=== PATIENT | male | born 1970 | race Caucasian/White ===

== ENCOUNTER 2020-04-30 13:40 | Emergency (ER) | payer OTHER ==
[2020-04-30] MEDS ORDERED: Sodium Chloride 0.9% 10 ML Syringe FLUSH PRN (14:06)
[2020-04-30] MEDS ORDERED: Sodium Chloride 0.9% 1,000 ML IV SCH ×2 (14:15→18:30)
--- NOTE | 2020-04-30 14:43 | EDM.PDOCBH ---
<Yayo Damon A - Last Filed: 05/01/20 06:20> ED HPI GENERAL MEDICAL PROBLEM - General Chief Complaint: Drug or Alcohol Abuse Stated Complaint: [facility] Time Seen by Provider: 04/30/20 13:46 - Related Data Allergies Allergy/AdvReac Type Severity Reaction Status Date / Time No Known Allergies Allergy Verified 04/30/20 13:46 Home Meds: Home Meds . [No Known Home Meds] 04/30/20 [History] Departure - Departure Disposition: DC/Tfer to [facility] 02 Clinical Impression: Alcohol dependence, binge pattern, Hypomagnesemia Alcohol intoxication Qualifiers: Complication of substance-induced condition: uncomplicated Qualified Code(s): F10.920 - Alcohol use, unspecified with intoxication, uncomplicated Alcohol withdrawal Qualifiers: Complication of substance-induced condition: uncomplicated Qualified Code(s): F10.230 - Alcohol dependence with withdrawal, uncomplicated - Discharge Information *PRESCRIPTION DRUG MONITORING PROGRAM REVIEWED*: Not Applicable *COPY OF PRESCRIPTION DRUG MONITORING REPORT IN PATIENT [place]: Not Applicable Referrals: PCP,Not In Area [Primary Care Provider] - Forms: ED Department Discharge <Des Ledesma - Last Filed: 05/01/20 12:50> ED HPI GENERAL MEDICAL PROBLEM - General Source of Information: Reports: Patient, EMS History Limitations: Reports: Intoxication - History of Present Illness INITIAL COMMENTS - FREE TEXT/NARRATIVE: The patient presents by [facility] for alcohol intoxication. They found him in his bathroom on the floor. He had trouble getting up. He says he quit drinking yesterday and he thinks he is withdrawing. I feel he may still be intoxicated. I have a mask on and I cannot smell alcohol but he is slurring his words and is weak. He said he has no pain but he has ecchymosis to his arms and legs. He has no headache, fever, chills, cough, congestion, chest pain, shortness of breath, abdominal pain, nausea or vomiting. EMS said there were multiple hard liquor bottles in his room. After talking with him they thought he has been drinking daily for 7 days. Onset: Gradual Duration: Day(s): Severity: Moderate Improves with: Reports: None Worsens with: Reports: None Associated Symptoms: Reports: No Other Symptoms Past Medical History - Past Health History Medical/Surgical History: Denies Medical/Surgical History Psychiatric History: Reports: Addiction Social & Family History - Family History Family Medical History: No Pertinent Family History Cardiac: Reports: Pulmonary Hypertension - Tobacco Use Tobacco Use Status *Q: Current Every Day Tobacco User Years of Tobacco use: 40 Packs/Tins Daily: 1 - Alcohol Use Days Per Week of Alcohol Use: 7 Number of Drinks Per Day: 20 Total Drinks Per Week: 140 - Recreational Drug Use Recreational Drug Use: No ED ROS GENERAL - Review of Systems Review Of Systems: See Below Constitutional: Reports: No Symptoms HEENT: Reports: No Symptoms Respiratory: Reports: No Symptoms Cardiovascular: Reports: No Symptoms Endocrine: Reports: No Symptoms GI/Abdominal: Reports: No Symptoms : Reports: No Symptoms Musculoskeletal: Reports: No Symptoms ED EXAM, BEHAVIORAL HEALTH - Physical Exam Exam: See Below Exam Limited By: Intoxication General Appearance: Alert Ears: Normal External Exam Nose: Normal Inspection Throat/Mouth: Normal Inspection Head: Atraumatic, Normocephalic Neck: Normal Inspection Respiratory/Chest: No Respiratory Distress, Lungs Clear, Normal Breath Sounds Cardiovascular: Regular Rate, Rhythm, No Edema, No Murmur GI/Abdominal: Soft, Non-Tender, No Organomegaly, No Mass COURSE, BEHAVIORAL HEALTH COMP - Course Vital Signs: Last Vital Signs Temp 97.6 F 04/30/20 13:41 Pulse 98 04/30/20 13:41 Resp 12 04/30/20 13:41 BP 136/86 04/30/20 13:41 Pulse Ox 86 L 04/30/20 13:41 Orders, Labs, Meds: Active Orders 24 hr Category Date Time Status Cardiac Monitoring [RC] . DIRECTED Care 04/30/20 14:06 Active Peripheral IV Care [RC] . DIRECTED Care 04/30/20 14:06 Active Lactated Ringers [Ringers, Lactated] 1,000 ml Med 04/30/20 18:45 Active IV ASDIRECTED Lactated Ringers [Ringers, Lactated] 1,000 ml Med 05/01/20 09:30 Active IV ASDIRECTED Sodium Chloride 0.9% [Normal Saline] 1,000 ml Med 04/30/20 14:15 Active IV .BOLUS Sodium Chloride 0.9% [Saline Flush] Med 04/30/20 14:06 Active 10 ml FLUSH ASDIRECTED PRN Peripheral IV Insertion Adult [OM.PC] Stat Oth 04/30/20 14:06 Ordered Medication Orders Sodium Chloride (Normal Saline) 1,000 mls @ 1,000 mls/hr IV .BOLUS RUBEN Last Admin: 04/30/20 14:17 Dose: 1,000 mls/hr Documented by: MIKALA Lactated Ringer's (Ringers, Lactated) 1,000 mls @ 100 mls/hr IV ASDIRECTED RUBEN Last Admin: 04/30/20 19:06 Dose: 100 mls/hr Documented by: HERMMIC Lactated Ringer's (Ringers, Lactated) 1,000 mls @ 150 mls/hr IV ASDIRECTED RUBEN Last Admin: 05/01/20 09:23 Dose: 150 mls/hr Documented by: MIKALA Sodium Chloride (Saline Flush) 10 ml FLUSH ASDIRECTED PRN PRN Reason: Keep Vein Open Last Admin: 04/30/20 14:17 Dose: 10 ml Documented by: MIKALA Laboratory Tests 04/30/20 04/30/20 04/30/20 Range/Units 14:20 14:22 14:28 WBC 6.32 (4.23-9.07) K/mm3 RBC 4.23 L (4.63-6.08) M/mm3 Hgb 15.1 (13.7-17.5) gm/dl Hct 42.8 (40.1-51.0) % MCV 101.2 H (79.0-92.2) fl MCH 35.7 H (25.7-32.2) pg MCHC 35.3 (32.2-35.5) g/dl RDW Std Deviation 47.6 H (35.1-43.9) fL Plt Count 29 L (163-337) K/mm3 MPV 10.5 (9.4-12.3) fl Neut % (Auto) 75.0 H (34.0-67.9) % Lymph % (Auto) 16.0 L (21.8-53.1) % [place] % (Auto) 8.4 (5.3-12.2) % Eos % (Auto) 0 L (0.8-7.0) Baso % (Auto) 0.3 (0.1-1.2) % Neut # (Auto) 4.74 (1.78-5.38) K/mm3 Lymph # (Auto) 1.01 L (1.32-3.57) K/mm3 [place] # (Auto) 0.53 (0.30-0.82) K/mm3 Eos # (Auto) 0.00 L (0.04-0.54) K/mm3 Baso # (Auto) 0.02 (0.01-0.08) K/mm3 Manual Slide Review Abnormal smear Sodium 141 (136-145) mEq/L Potassium 3.9 (3.5-5.1) mEq/L Chloride 99 (98-107) mEq/L Carbon Dioxide 30 (21-32) mEq/L Anion Gap 15.9 H (5-15) BUN 9 (7-18) mg/dL Creatinine 0.8 (0.7-1.3) mg/dL Est Cr Clr Drug Dosing 111.53 mL/min Estimated GFR (MDRD) > 60 (>60) mL/min BUN/Creatinine Ratio 11.3 L (14-18) Glucose 94 (74-106) mg/dL POC Glucose (70-105) mg/dL Calcium 8.3 L (8.5-10.1) mg/dL Magnesium 1.6 L (1.8-2.4) mg/dl Total Bilirubin 0.7 (0.2-1.0) mg/dL AST 54 H (15-37) U/L ALT 43 (16-63) U/L Alkaline Phosphatase 82 (46-116) U/L Total Protein 7.8 (6.4-8.2) g/dl Albumin 3.5 (3.4-5.0) g/dl Globulin 4.3 gm/dL Albumin/Globulin Ratio 0.8 L (1-2) Urine Opiates Screen (IAPUWA=099) Ur Buprenorphine Scrn (CUTOFF=10) Ur Oxycodone Screen (WNU7BQ=016) Urine Methadone Screen (QRI4QZ=388) Ur Propoxyphene Screen (JFMZPA=739) Ur Barbiturates Screen (ONMYMG=477) Ur Tricyclics Screen (LNMHUT=601) Ur Phencyclidine Scrn (CUTOFF=25) Ur Amphetamine Screen (DMUFTR=533) U Methamphetamines Scrn (WKGIMD=847) U Benzodiazepines Scrn (VQXMVS=665) U Cocaine Metab Screen (VBDNJA=819) U Marijuana (THC) Screen (CUTOFF=50) Ethyl Alcohol 0.52 (0.00) gm% SARS-CoV-2 RNA (UTE) Negative (NEGATIVE) 04/30/20 05/01/20 05/01/20 Range/Units 15:20 04:52 07:05 WBC (4.23-9.07) K/mm3 RBC (4.63-6.08) M/mm3 Hgb (13.7-17.5) gm/dl Hct (40.1-51.0) % MCV (79.0-92.2) fl MCH (25.7-32.2) pg MCHC (32.2-35.5) g/dl RDW Std Deviation (35.1-43.9) fL Plt Count (163-337) K/mm3 MPV (9.4-12.3) fl Neut % (Auto) (34.0-67.9) % Lymph % (Auto) (21.8-53.1) % [place] % (Auto) (5.3-12.2) % Eos % (Auto) (0.8-7.0) Baso % (Auto) (0.1-1.2) % Neut # (Auto) (1.78-5.38) K/mm3 Lymph # (Auto) (1.32-3.57) K/mm3 [place] # (Auto) (0.30-0.82) K/mm3 Eos # (Auto) (0.04-0.54) K/mm3 Baso # (Auto) (0.01-0.08) K/mm3 Manual Slide Review Sodium (136-145) mEq/L Potassium (3.5-5.1) mEq/L Chloride (98-107) mEq/L Carbon Dioxide (21-32) mEq/L Anion Gap (5-15) BUN (7-18) mg/dL Creatinine (0.7-1.3) mg/dL Est Cr Clr Drug Dosing mL/min Estimated GFR (MDRD) (>60) mL/min BUN/Creatinine Ratio (14-18) Glucose (74-106) mg/dL POC Glucose 93 (70-105) mg/dL Calcium (8.5-10.1) mg/dL Magnesium (1.8-2.4) mg/dl Total Bilirubin (0.2-1.0) mg/dL AST (15-37) U/L ALT (16-63) U/L Alkaline Phosphatase (46-116) U/L Total Protein (6.4-8.2) g/dl Albumin (3.4-5.0) g/dl Globulin gm/dL Albumin/Globulin Ratio (1-2) Urine Opiates Screen Negative (ESIOVX=126) Ur Buprenorphine Scrn Negative (CUTOFF=10) Ur Oxycodone Screen Negative (GLH9TD=039) Urine Methadone Screen Negative (WTT5RT=777) Ur Propoxyphene Screen Negative (WAERWH=995) Ur Barbiturates Screen Negative (NLVOFL=331) Ur Tricyclics Screen Negative (MFFHPV=912) Ur Phencyclidine Scrn Negative (CUTOFF=25) Ur Amphetamine Screen Negative (GMVBCC=644) U Methamphetamines Scrn Negative (KRSPFI=277) U Benzodiazepines Scrn Negative (VWKQVK=857) U Cocaine Metab Screen Negative (LMETAC=815) U Marijuana (THC) Screen Negative (CUTOFF=50) Ethyl Alcohol 0.04 (0.00) gm% SARS-CoV-2 RNA (UTE) (NEGATIVE) Medications Generic Name Dose Route Start Last Admin Trade Name Freq PRN Reason Stop Dose Admin Sodium Chloride 1,000 mls @ 1,000 mls/hr 04/30/20 14:15 04/30/20 14:17 Normal Saline IV 1,000 mls/hr .BOLUS RUBEN Administration Lactated Ringer's 1,000 mls @ 100 mls/hr 04/30/20 18:45 04/30/20 19:06 Ringers, Lactated IV 100 mls/hr ASDIRECTED RUBEN Administration Lactated Ringer's 1,000 mls @ 150 mls/hr 05/01/20 09:30 05/01/20 09:23 Ringers, Lactated IV 150 mls/hr ASDIRECTED RUBEN Administration Sodium Chloride 10 ml 04/30/20 14:06 04/30/20 14:17 Saline Flush FLUSH 10 ml ASDIRECTED PRN Administration Keep Vein Open Discontinued Medications Generic Name Dose Route Start Last Admin Trade Name Freq PRN Reason Stop Dose Admin Magnesium Sulfate 2 gm in 50 mls @ 25 mls/hr 04/30/20 15:15 04/30/20 15:35 Magnesium Sulfate In Water Premix IV Not Given Q1H RUBEN Lactated Ringer's 1,000 mls @ 1,000 mls/hr 04/30/20 15:29 04/30/20 15:45 Ringers, Lactated IV 04/30/20 16:28 400 mls/hr .BOLUS ONE Administration Magnesium Sulfate 2 gm in 50 mls @ 25 mls/hr 04/30/20 15:35 04/30/20 15:46 Magnesium Sulfate In Water Premix IV 04/30/20 17:34 25 mls/hr ONETIME ONE Administration Sodium Chloride 1,000 mls @ 100 mls/hr 04/30/20 18:30 Normal Saline IV ASDIRECTED RUBEN Lactated Ringer's 1,000 mls @ 1,000 mls/hr 05/01/20 07:45 05/01/20 07:53 Ringers, Lactated IV 05/01/20 08:44 1,000 mls/hr .BOLUS ONE Administration Lorazepam 2 mg 05/01/20 07:44 05/01/20 07:48 Ativan IVPUSH 05/01/20 07:45 2 mg ONETIME ONE Administration Lorazepam 1 mg 05/01/20 09:16 05/01/20 09:23 Ativan PO 05/01/20 09:17 1 mg ONETIME ONE Administration Lorazepam 1 mg 05/01/20 12:15 05/01/20 12:45 Ativan IVPUSH 05/01/20 12:16 1 mg ONETIME ONE Administration Thiamine HCl 100 mg 04/30/20 15:15 04/30/20 15:46 Vitamin B-1 IVPUSH 04/30/20 15:16 100 mg ONETIME ONE Administration Re-Assessment/Re-Exam: I ordered an IV NS 1L bolus, labs, ETOH and drug screen. His CBC looks good. His anion gap is elevated at 15.9. His magnesium is low at 1.6. His AST is elevated at 54. His UDS is negative. His ETOH is 0.52. His COVID 19 is negative. I have ordered a liter of LR and magnesium 2 grams and thiamine. He will staying with us for a few hours. It is change of shift. Dr Damon to take over. My nurse was going to get the patient up to go home and he was shaking and unsteady on his feet. I ordered a repeat ETOH and it was 0.04. I ordered ativan 2mg IV. That did help. I gave him some breakfast and more LR. We tried a few hours later to get him up and he still was shaky. His CIWAA was 7. I gave him PO ativan. I was planning on discharging him home or to a crisis bed with [facility] but I do not think that is a possibility. I feel he needs to be admitted. We have no beds here. [facility] is full. I called Yeyo Small and I am waiting to take care of the hospitalist. I talked with Dr Felix and he accepted the patient. Departure - Departure Time of Disposition: 12:50 Sepsis Event Note (ED) - Evaluation Sepsis Screening Result: No Definite Risk - My Orders Last 24 Hours: My Active Orders 04/30/20 14:06 Cardiac Monitoring [RC] . DIRECTED Peripheral IV Care [RC] . DIRECTED Sodium Chloride 0.9% [Saline Flush] 10 ml FLUSH ASDIRECTED PRN Peripheral IV Insertion Adult [OM.PC] Stat 04/30/20 14:15 Sodium Chloride 0.9% [Normal Saline] 1,000 ml IV .BOLUS 04/30/20 18:45 Lactated Ringers [Ringers, Lactated] 1,000 ml IV ASDIRECTED 05/01/20 09:30 Lactated Ringers [Ringers, Lactated] 1,000 ml IV ASDIRECTED - Assessment/Plan Last 24 Hours: My Active Orders 04/30/20 14:06 Cardiac Monitoring [RC] . DIRECTED Peripheral IV Care [RC] . DIRECTED Sodium Chloride 0.9% [Saline Flush] 10 ml FLUSH ASDIRECTED PRN Peripheral IV Insertion Adult [OM.PC] Stat 04/30/20 14:15 Sodium Chloride 0.9% [Normal Saline] 1,000 ml IV .BOLUS 04/30/20 18:45 Lactated Ringers [Ringers, Lactated] 1,000 ml IV ASDIRECTED 05/01/20 09:30 Lactated Ringers [Ringers, Lactated] 1,000 ml IV ASDIRECTED
--- NOTE | 2020-04-30 15:05 | CR ---
Chest: Portable view of the chest was obtained. Comparison: No prior chest imaging is available. Heart size and mediastinum are normal. Lungs are clear with no acute parenchymal change. Bony structures are grossly intact. Impression: 1. Nothing acute is seen in portable chest x-ray. Diagnostic code #1
[2020-04-30] MEDS ORDERED: Magnesium Sulfate/Water 2 GM/50 ML BAG IV SCH (15:15)
[2020-04-30] MEDS ORDERED: Thiamine 200 MG/2 ML MDV IVPUSH ONE (15:15)
[2020-04-30] MEDS ORDERED: Lactated Ringers 1,000 ML IV ONE (15:29)
[2020-04-30] MEDS ORDERED: Magnesium Sulfate/Water 2 GM/50 ML BAG IV ONE (15:35)
[2020-04-30] MEDS ORDERED: Lactated Ringers 1,000 ML IV SCH (18:45)
[2020-05-01] MEDS ORDERED: LORazepam 2 MG/ML SDV IVPUSH ONE ×2 (07:44→12:15)
[2020-05-01] MEDS ORDERED: Lactated Ringers 1,000 ML IV ONE (07:45)
[2020-05-01] MEDS ORDERED: LORazepam 1 MG Tab PO ONE (09:16)
[2020-05-01] MEDS ORDERED: Lactated Ringers 1,000 ML IV SCH (09:30)
== END 2020-05-01 13:08 ==
LOC: JD.ED 13:40
DX: F10.220 Alcohol dependence with intoxication, uncomplicated (principal); F10.230 Alcohol dependence with withdrawal, uncomplicated; E83.42 Hypomagnesemia; F50.81 Binge eating disorder; F17.210 Nicotine dependence, cigarettes, uncomplicated; Z20.828 Contact with and (suspected) exposure to other viral communicable diseases; Y90.0 Blood alcohol level of less than 20 mg/100 ml
CPT/HCPCS: 36415; 71045; 80053; 80306; 80307; 82962; 83735; 85025; 87635; 96365; 96366; 96375; 96376; 99285; A9270; J2060; J3411; J3475; J7030; J7120; 99284; U0002

== ENCOUNTER 2020-11-30 12:50 | Inpatient (IN) | payer OTHER ==
[2020-11-30] MEDS ORDERED: Metoclopramide 10 MG/2 ML SDV IVPUSH ONE (13:31)
[2020-11-30] MEDS ORDERED: Thiamine 100 MG Tab PO ONE (13:31)
[2020-11-30] MEDS ORDERED: Folic Acid 1 MG Tab PO ONE (13:31)
[2020-11-30] MEDS ORDERED: Sodium Chloride 0.9% 10 ML Syringe FLUSH PRN (13:31)
[2020-11-30] MEDS ORDERED: Sodium Chloride 0.9% 1,000 ML IV ONE ×3 (13:31→17:38)
--- NOTE | 2020-11-30 13:43 | EDM.PDOC ---
ED HPI GENERAL MEDICAL PROBLEM - General Chief Complaint: Drug or Alcohol Abuse Stated Complaint: MENTAL EVAL Time Seen by Provider: 11/30/20 13:31 Source of Information: Reports: Patient, RN Notes Reviewed History Limitations: Reports: No Limitations - History of Present Illness INITIAL COMMENTS - FREE TEXT/NARRATIVE: Patient is a 50-year-old male who presents to the ER for the evaluation of his alcohol intoxication. Patient is a daily drinker, states that he normally drinks about 18 pack of beers on a daily basis, has been doing this for multiple years. Does state that he has a history of withdrawal seizures in the past. Patient himself states that his last drink was 2 hours ago, and he did present to the ER with a few bottles of liquor, which were confiscated. The patient himself denies pain anywhere, he is not had any falls. He was somewhat unstable on his feet, due to the amount of intoxication he is experiencing. He was able to answer questions appropriately with me however he is somewhat tearful, states that he would like to quit drinking, as he thinks it is ruining his life. Patient denies any other sick-like symptoms, fever/chills, cough/shortness of breath, nausea/vomiting/diarrhea. Patient is a , but states he takes no regular medications. Patient denies any other illicit drug use, and states that he is an every day smoker and he smokes about half a pack per day, for the last 30 years or so. - Related Data Allergies Allergy/AdvReac Type Severity Reaction Status Date / Time No Known Allergies Allergy Verified 11/30/20 13:02 Home Meds: Home Meds . [No Known Home Meds] 04/30/20 [History] Past Medical History Cardiovascular History: Reports: Hypertension Psychiatric History: Reports: Addiction (alcohol/nicotine) Endocrine/Metabolic History: Reports: Obesity/BMI 30+ Social & Family History - Family History Cardiac: Reports: Pulmonary Hypertension - Tobacco Use Tobacco Use Status *Q: Current Every Day Tobacco User Tobacco Use Within Last Twelve Months: Cigarettes Years of Tobacco use: 25 Packs/Tins Daily: 1 - Caffeine Use Caffeine Use: Reports: Coffee - Alcohol Use Alcohol Use History: Yes Days Per Week of Alcohol Use: 7 Number of Drinks Per Day Comment: 18 beers plus liquor Alcohol Use in Last Twelve Months: Yes Alcohol Use Frequency: Daily - Recreational Drug Use Recreational Drug Use: No ED ROS GENERAL - Review of Systems Review Of Systems: Comprehensive ROS is negative, except as noted in HPI. ED EXAM, GENERAL - Physical Exam Exam: See Below Exam Limited By: No Limitations General Appearance: Alert, WD/WN, No Apparent Distress (Patient does exhibit generalized intoxication symptoms but does answer questions appropriately when asked.) Eye Exam: Bilateral Eye: EOMI, Normal Inspection, PERRL Respiratory/Chest: No Respiratory Distress, Lungs Clear, Normal Breath Sounds, No Accessory Muscle Use, Chest Non-Tender Cardiovascular: Normal Peripheral Pulses, Regular Rate, Rhythm, No Edema Peripheral Pulses: 2+: Radial (L), Radial (R) GI/Abdominal: Normal Bowel Sounds, Soft, Non-Tender Extremities: Normal Inspection, Normal Capillary Refill Neurological: Alert, Oriented, Normal Cognition, No Motor/Sensory Deficits Psychiatric: Depressed Mood, Tearful (pt does break down multiple times while being interviewed) Skin Exam: Warm, Dry, Intact, Normal Color, No Rash Course - Vital Signs Last Recorded V/S: Last Vital Signs Temp 97.4 F 11/30/20 12:59 Pulse 103 H 11/30/20 12:59 Resp 16 11/30/20 12:59 BP 165/107 H 11/30/20 12:59 Pulse Ox 93 L 11/30/20 12:59 - Orders/Labs/Meds Orders: Active Orders 24 hr Category Date Time Status Peripheral IV Care [RC] . DIRECTED Care 11/30/20 13:31 Active COVID-19/FLU A+B [MOLEC] Stat Lab 11/30/20 19:46 Ordered Sodium Chloride 0.9% [Saline Flush] Med 11/30/20 13:31 Active 10 ml FLUSH ASDIRECTED PRN Peripheral IV Insertion Adult [OM.PC] Stat Oth 11/30/20 13:31 Ordered Medication Orders Sodium Chloride (Sodium Chloride 0.9% 10 Ml Syringe) 10 ml FLUSH ASDIRECTED PRN PRN Reason: Keep Vein Open Last Admin: 11/30/20 13:46 Dose: 10 ml Documented by: KATEY Labs: Laboratory Tests 11/30/20 11/30/20 11/30/20 Range/Units 13:00 13:00 13:00 WBC 3.95 L (4.23-9.07) K/mm3 RBC 4.03 L (4.63-6.08) M/mm3 Hgb 14.8 (13.7-17.5) gm/dl Hct 43.5 (40.1-51.0) % MCV 107.9 H D (79.0-92.2) fl MCH 36.7 H (25.7-32.2) pg MCHC 34.0 (32.2-35.5) g/dl RDW Std Deviation 51.1 H (35.1-43.9) fL Plt Count 97 L (163-337) K/mm3 MPV 10.2 (9.4-12.3) fl Neut % (Auto) 34.0 (34.0-67.9) % Lymph % (Auto) 47.3 (21.8-53.1) % [place] % (Auto) 14.9 H (5.3-12.2) % Eos % (Auto) 2.5 (0.8-7.0) Baso % (Auto) 1.0 (0.1-1.2) % Neut # (Auto) 1.34 L (1.78-5.38) K/mm3 Lymph # (Auto) 1.87 (1.32-3.57) K/mm3 [place] # (Auto) 0.59 (0.30-0.82) K/mm3 Eos # (Auto) 0.10 (0.04-0.54) K/mm3 Baso # (Auto) 0.04 (0.01-0.08) K/mm3 Manual Slide Review Normal smear PT 10.8 (9.7-12.0) SECONDS INR 1.01 Sodium 146 H (136-145) mEq/L Potassium 4.1 (3.5-5.1) mEq/L Chloride 107 (98-107) mEq/L Carbon Dioxide 24 (21-32) mEq/L Anion Gap 19.1 H (5-15) BUN 6 L (7-18) mg/dL Creatinine 0.6 L (0.7-1.3) mg/dL Est Cr Clr Drug Dosing 153.39 mL/min Estimated GFR (MDRD) > 60 (>60) mL/min BUN/Creatinine Ratio 10.0 L (14-18) Glucose 107 H (70-99) mg/dL Calcium 8.3 L (8.5-10.1) mg/dL Magnesium 1.9 (1.8-2.4) mg/dL Total Bilirubin 0.3 (0.2-1.0) mg/dL AST 100 H (15-37) U/L ALT 82 H (16-63) U/L Alkaline Phosphatase 154 H (46-116) U/L Total Protein 8.5 H (6.4-8.2) g/dl Albumin 4.2 (3.4-5.0) g/dl Globulin 4.3 gm/dL Albumin/Globulin Ratio 1.0 (1-2) Urine Opiates Screen (YUSZHU=698) Ur Buprenorphine Scrn (CUTOFF=10) Ur Oxycodone Screen (DKX3PS=391) Urine Methadone Screen (WNT5BB=850) Ur Propoxyphene Screen (FBPTIC=979) Ur Barbiturates Screen (ZRPMPU=652) Ur Tricyclics Screen (FETJRP=524) Ur Phencyclidine Scrn (CUTOFF=25) Ur Amphetamine Screen (UMFMQN=690) U Methamphetamines Scrn (MSWNBL=642) U Benzodiazepines Scrn (QACPUQ=576) U Cocaine Metab Screen (SYWBDV=119) U Marijuana (THC) Screen (CUTOFF=50) Ethyl Alcohol 0.49 (0.00) gm% 11/30/20 Range/Units 13:45 WBC (4.23-9.07) K/mm3 RBC (4.63-6.08) M/mm3 Hgb (13.7-17.5) gm/dl Hct (40.1-51.0) % MCV (79.0-92.2) fl MCH (25.7-32.2) pg MCHC (32.2-35.5) g/dl RDW Std Deviation (35.1-43.9) fL Plt Count (163-337) K/mm3 MPV (9.4-12.3) fl Neut % (Auto) (34.0-67.9) % Lymph % (Auto) (21.8-53.1) % [place] % (Auto) (5.3-12.2) % Eos % (Auto) (0.8-7.0) Baso % (Auto) (0.1-1.2) % Neut # (Auto) (1.78-5.38) K/mm3 Lymph # (Auto) (1.32-3.57) K/mm3 [place] # (Auto) (0.30-0.82) K/mm3 Eos # (Auto) (0.04-0.54) K/mm3 Baso # (Auto) (0.01-0.08) K/mm3 Manual Slide Review PT (9.7-12.0) SECONDS INR Sodium (136-145) mEq/L Potassium (3.5-5.1) mEq/L Chloride (98-107) mEq/L Carbon Dioxide (21-32) mEq/L Anion Gap (5-15) BUN (7-18) mg/dL Creatinine (0.7-1.3) mg/dL Est Cr Clr Drug Dosing mL/min Estimated GFR (MDRD) (>60) mL/min BUN/Creatinine Ratio (14-18) Glucose (70-99) mg/dL Calcium (8.5-10.1) mg/dL Magnesium (1.8-2.4) mg/dL Total Bilirubin (0.2-1.0) mg/dL AST (15-37) U/L ALT (16-63) U/L Alkaline Phosphatase (46-116) U/L Total Protein (6.4-8.2) g/dl Albumin (3.4-5.0) g/dl Globulin gm/dL Albumin/Globulin Ratio (1-2) Urine Opiates Screen Negative (GGWDKP=760) Ur Buprenorphine Scrn Negative (CUTOFF=10) Ur Oxycodone Screen Negative (SVD0MI=656) Urine Methadone Screen Negative (BVE6XK=073) Ur Propoxyphene Screen Negative (CVROWR=576) Ur Barbiturates Screen Negative (XHQNFC=412) Ur Tricyclics Screen Negative (HWGKDY=473) Ur Phencyclidine Scrn Negative (CUTOFF=25) Ur Amphetamine Screen Negative (YBTQQO=089) U Methamphetamines Scrn Negative (BNTRPR=323) U Benzodiazepines Scrn Negative (WHNXWL=875) U Cocaine Metab Screen Negative (ANYELI=409) U Marijuana (THC) Screen Negative (CUTOFF=50) Ethyl Alcohol (0.00) gm% Meds: Medications Generic Name Dose Route Start Last Admin Trade Name Freq PRN Reason Stop Dose Admin Sodium Chloride 10 ml 11/30/20 13:31 11/30/20 13:46 Sodium Chloride 0.9% 10 Ml Syringe FLUSH 10 ml ASDIRECTED PRN Administration Keep Vein Open Discontinued Medications Generic Name Dose Route Start Last Admin Trade Name Pretty PRN Reason Stop Dose Admin Folic Acid 1 mg 11/30/20 13:31 11/30/20 13:46 Folic Acid 1 Mg Tab PO 11/30/20 13:32 1 mg ONETIME ONE Administration Sodium Chloride 1,000 mls @ 999 mls/hr 11/30/20 13:31 11/30/20 13:45 Normal Saline IV 11/30/20 14:31 999 mls/hr ONETIME ONE Administration Sodium Chloride 1,000 mls @ 500 mls/hr 11/30/20 14:31 11/30/20 15:11 Normal Saline IV 11/30/20 16:30 500 mls/hr ONETIME ONE Administration Sodium Chloride 1,000 mls @ 500 mls/hr 11/30/20 17:38 11/30/20 17:45 Normal Saline IV 11/30/20 19:37 500 mls/hr ONETIME ONE Administration Lorazepam 2 mg 11/30/20 14:38 11/30/20 15:20 Lorazepam 2 Mg/Ml Sdv IVPUSH 11/30/20 14:39 2 mg ONETIME ONE Administration Metoclopramide HCl 10 mg 11/30/20 13:31 11/30/20 13:46 Metoclopramide 10 Mg/2 Ml Sdv IVPUSH 11/30/20 13:32 10 mg ONETIME ONE Administration Thiamine HCl 100 mg 11/30/20 13:31 11/30/20 13:46 Thiamine 100 Mg Tab PO 11/30/20 13:32 100 mg ONETIME ONE Administration - Re-Assessments/Exams Free Text/Narrative Re-Assessment/Exam: 11/30/20 13:43 Patient presents to the ER for the evaluation of his alcohol intoxication, we will go ahead and get IV placed, get him some fluids, medications to help him sleep this off, and check some basic labs. Patient did verbalize that he would like to quit drinking however I will reassess the situation when he is more sober. 11/30/20 14:30 Patient's labs have resulted, CBC is impressive for macrocytic anemia, with susp ect bone marrow suppression due to the low white count as well. Metabolic panel demonstrates an anion gap elevated at 19.1, and transaminitis, due to acute alcohol intake, a WENDI of 0.49, and a negative urine drug screen for the most part. Again we will monitor the patient for a good amount of time, and try to figure out a good discharge plan for him. 11/30/20 14:38 Was informed by nursing staff that the patient did just pull out his IV, he is not being combative by any means but did pull out his IV. So we can get him to sleep, and let him sober up by will give him some Ativan to help calm his nerves while being in the ER. 11/30/20 19:58 Patient was up at bedside and is still expressing the want to stop drinking because he states that it is "killing him" I have ordered a COVID screen and have talked with Dr. Gunderson, hospitalist manager aviation who does ultimately accept for admission. Departure - Departure Time of Disposition: 20:00 Disposition: Admitted As Inpatient 64 Condition: Fair Clinical Impression: Alcohol abuse Alcohol intoxication Qualifiers: Complication of substance-induced condition: uncomplicated Qualified Code(s): F10.920 - Alcohol use, unspecified with intoxication, uncomplicated - Discharge Information *PRESCRIPTION DRUG MONITORING PROGRAM REVIEWED*: No *COPY OF PRESCRIPTION DRUG MONITORING REPORT IN PATIENT TEAGAN: No Referrals: Katelin Correa MD [Primary Care Provider] - Forms: ED Department Discharge Sepsis Event Note (ED) - Evaluation Sepsis Screening Result: No Definite Risk - Focused Exam Vital Signs: Vital Signs Temp Pulse Resp BP Pulse Ox 11/30/20 12:59 97.4 F 103 H 16 165/107 H 93 L - My Orders Last 24 Hours: My Active Orders 11/30/20 13:31 Peripheral IV Care [RC] . DIRECTED Sodium Chloride 0.9% [Saline Flush] 10 ml FLUSH ASDIRECTED PRN Peripheral IV Insertion Adult [OM.PC] Stat 11/30/20 19:46 COVID-19/FLU A+B [MOLEC] Stat - Assessment/Plan Last 24 Hours: My Active Orders 11/30/20 13:31 Peripheral IV Care [RC] . DIRECTED Sodium Chloride 0.9% [Saline Flush] 10 ml FLUSH ASDIRECTED PRN Peripheral IV Insertion Adult [OM.PC] Stat 11/30/20 19:46 COVID-19/FLU A+B [MOLEC] Stat
[2020-11-30] MEDS ORDERED: LORazepam 2 MG/ML SDV IVPUSH ONE (14:38)
[2020-11-30] MEDS ORDERED: Ondansetron 4 MG/2 ML SDV IVPUSH PRN (20:32)
[2020-11-30 20:34] LABS: CORONAVIRUS COVID-19 NAA NEGATIVE (NEGATIVE)
--- NOTE | 2020-11-30 20:40 | PCM.HP.2 ---
H&P History of Present Illness - General Date of Service: 11/30/20 Admit Problem/Dx: Admission Diagnosis/Problem Admission Diagnosis/Problem Alcoholism Source of Information: Patient - History of Present Illness Initial Comments - Free Text/Narative: Patient is a 50-year-old male with a past medical history for alcoholism and supposedly alcohol withdrawal related seizures, who was never been hospitalized who presents to the [facility] emergency department earlier today by taxi exquisitely intoxicated. Patient presented to the ER earlier today with the intention to sober up. He apparently wants to stop drinking. Patient states that he has been drinking at least an 18 rack of light beer per day for many years. Occasionally he will have 16 ounce Pounders intermittently as well. Denies any hard liquor currently. No other drug use. He smokes a pack of cigarettes per day. He presented to the emergency department with a blood alcohol level over 400. He was allowed to sober up in the emergency department. A conversation was had between ER personnel and he after he sobered up and was answering questions. Patient wished that he could be admitted in order to stop drinking. For that reason the patient was referred to the internal medicine service for treatment of impending withdrawal. Patient states that is never been hospitalized for alcohol withdrawal before. He believes that he has had a seizure. This happened in [place]. He has obviously never been intubated. At current time, the patient denies any headache, shortness of breath, pleurisy, chest pain, nausea/vomiting, abdominal discomfort or difficulties with voiding. - Related Data Allergies/Adverse Reactions: Allergies Allergy/AdvReac Type Severity Reaction Status Date / Time No Known Allergies Allergy Verified 11/30/20 13:02 Home Medications: Home Meds . [No Known Home Meds] 04/30/20 [History] Past Medical History Cardiovascular History: Reports: Hypertension Psychiatric History: Reports: Addiction (alcohol/nicotine) Endocrine/Metabolic History: Reports: Obesity/BMI 30+ Social & Family History - Family History Family Medical History: No Pertinent Family History Cardiac: Reports: Pulmonary Hypertension - Tobacco Use Tobacco Use Status *Q: Current Every Day Tobacco User Years of Tobacco use: 25 Packs/Tins Daily: 1 - Caffeine Use Caffeine Use: Reports: Coffee - Alcohol Use Days Per Week of Alcohol Use: 7 - Recreational Drug Use Recreational Drug Use: No H&P Review of Systems - Review of Systems: Review Of Systems: Comprehensive ROS is negative, except as noted in HPI. Exam - Exam Exam: See Below - Vital Signs Vital Signs: Last Vital Signs Temp 97.4 F 11/30/20 12:59 Pulse 103 H 11/30/20 12:59 Resp 16 11/30/20 12:59 BP 165/107 H 11/30/20 12:59 Pulse Ox 93 L 11/30/20 12:59 Weight: 220 lb - Exam Physical Exam Comments:: General: Awake and alert, in no apparent distress. Nontoxic-appearing. HEENT: Normocephalic, atraumatic. Extra ocular muscles intact. Sclerae are injected. Pupils equal and reactive to light. Nares are patent. Oropharynx clear without erythema or exudate. Tongue is midline. Neck: Supple without lymphadenopathy. No goiter. Trachea midline. Heart: Regular rate and rhythm. S1 and S2 heard without murmur or extrasystoles. Lungs: Clear to auscultation bilaterally. No wheezing, rales, rhonchi. Abdomen: Soft, nontender, nondistended. Positive bowel sounds. No CVA tenderness. No suprapubic tenderness. Extremities: Warm and perfused. No clubbing, cyanosis, or edema. Integument: No obvious rash or jaundice. No lymphadenopathy. Neurologic: Cranial nerves II through XII grossly intact. No obvious gross motor or sensory deficits. Psychiatric: Normal mood and affect. - Patient Data Lab Results Last 24 hrs: Laboratory Results - last 24 hr 11/30/20 11/30/20 11/30/20 Range/Units 13:00 13:00 13:00 WBC 3.95 L (4.23-9.07) K/mm3 RBC 4.03 L (4.63-6.08) M/mm3 Hgb 14.8 (13.7-17.5) gm/dl Hct 43.5 (40.1-51.0) % MCV 107.9 H D (79.0-92.2) fl MCH 36.7 H (25.7-32.2) pg MCHC 34.0 (32.2-35.5) g/dl RDW Std Deviation 51.1 H (35.1-43.9) fL Plt Count 97 L (163-337) K/mm3 MPV 10.2 (9.4-12.3) fl Neut % (Auto) 34.0 (34.0-67.9) % Lymph % (Auto) 47.3 (21.8-53.1) % [place] % (Auto) 14.9 H (5.3-12.2) % Eos % (Auto) 2.5 (0.8-7.0) Baso % (Auto) 1.0 (0.1-1.2) % Neut # (Auto) 1.34 L (1.78-5.38) K/mm3 Lymph # (Auto) 1.87 (1.32-3.57) K/mm3 [place] # (Auto) 0.59 (0.30-0.82) K/mm3 Eos # (Auto) 0.10 (0.04-0.54) K/mm3 Baso # (Auto) 0.04 (0.01-0.08) K/mm3 Manual Slide Review Normal smear PT 10.8 (9.7-12.0) SECONDS INR 1.01 Sodium 146 H (136-145) mEq/L Potassium 4.1 (3.5-5.1) mEq/L Chloride 107 (98-107) mEq/L Carbon Dioxide 24 (21-32) mEq/L Anion Gap 19.1 H (5-15) BUN 6 L (7-18) mg/dL Creatinine 0.6 L (0.7-1.3) mg/dL Est Cr Clr Drug Dosing 153.39 mL/min Estimated GFR (MDRD) > 60 (>60) mL/min BUN/Creatinine Ratio 10.0 L (14-18) Glucose 107 H (70-99) mg/dL Calcium 8.3 L (8.5-10.1) mg/dL Magnesium 1.9 (1.8-2.4) mg/dL Total Bilirubin 0.3 (0.2-1.0) mg/dL AST 100 H (15-37) U/L ALT 82 H (16-63) U/L Alkaline Phosphatase 154 H (46-116) U/L Total Protein 8.5 H (6.4-8.2) g/dl Albumin 4.2 (3.4-5.0) g/dl Globulin 4.3 gm/dL Albumin/Globulin Ratio 1.0 (1-2) Urine Opiates Screen (HAXOML=095) Ur Buprenorphine Scrn (CUTOFF=10) Ur Oxycodone Screen (CNO6GY=672) Urine Methadone Screen (DSC7BO=211) Ur Propoxyphene Screen (YGGKMB=047) Ur Barbiturates Screen (ORNIED=996) Ur Tricyclics Screen (PNZVKX=981) Ur Phencyclidine Scrn (CUTOFF=25) Ur Amphetamine Screen (TOGVTH=133) U Methamphetamines Scrn (QSIHAI=676) U Benzodiazepines Scrn (DWWFEF=832) U Cocaine Metab Screen (AANTZP=727) U Marijuana (THC) Screen (CUTOFF=50) Ethyl Alcohol 0.49 (0.00) gm% Influenza Type A RNA (NEGATIVE) Influenza Type B RNA (NEGATIVE) SARS-CoV-2 RNA (UTE) (NEGATIVE) 11/30/20 11/30/20 Range/Units 13:45 19:47 WBC (4.23-9.07) K/mm3 RBC (4.63-6.08) M/mm3 Hgb (13.7-17.5) gm/dl Hct (40.1-51.0) % MCV (79.0-92.2) fl MCH (25.7-32.2) pg MCHC (32.2-35.5) g/dl RDW Std Deviation (35.1-43.9) fL Plt Count (163-337) K/mm3 MPV (9.4-12.3) fl Neut % (Auto) (34.0-67.9) % Lymph % (Auto) (21.8-53.1) % [place] % (Auto) (5.3-12.2) % Eos % (Auto) (0.8-7.0) Baso % (Auto) (0.1-1.2) % Neut # (Auto) (1.78-5.38) K/mm3 Lymph # (Auto) (1.32-3.57) K/mm3 [place] # (Auto) (0.30-0.82) K/mm3 Eos # (Auto) (0.04-0.54) K/mm3 Baso # (Auto) (0.01-0.08) K/mm3 Manual Slide Review PT (9.7-12.0) SECONDS INR Sodium (136-145) mEq/L Potassium (3.5-5.1) mEq/L Chloride (98-107) mEq/L Carbon Dioxide (21-32) mEq/L Anion Gap (5-15) BUN (7-18) mg/dL Creatinine (0.7-1.3) mg/dL Est Cr Clr Drug Dosing mL/min Estimated GFR (MDRD) (>60) mL/min BUN/Creatinine Ratio (14-18) Glucose (70-99) mg/dL Calcium (8.5-10.1) mg/dL Magnesium (1.8-2.4) mg/dL Total Bilirubin (0.2-1.0) mg/dL AST (15-37) U/L ALT (16-63) U/L Alkaline Phosphatase (46-116) U/L Total Protein (6.4-8.2) g/dl Albumin (3.4-5.0) g/dl Globulin gm/dL Albumin/Globulin Ratio (1-2) Urine Opiates Screen Negative (ZYXYAS=449) Ur Buprenorphine Scrn Negative (CUTOFF=10) Ur Oxycodone Screen Negative (SRG8NU=566) Urine Methadone Screen Negative (QGW9NU=854) Ur Propoxyphene Screen Negative (WNQOPD=938) Ur Barbiturates Screen Negative (KLBSTC=967) Ur Tricyclics Screen Negative (HMYMXQ=046) Ur Phencyclidine Scrn Negative (CUTOFF=25) Ur Amphetamine Screen Negative (OLANOX=419) U Methamphetamines Scrn Negative (PHUXEF=289) U Benzodiazepines Scrn Negative (MXOGFS=888) U Cocaine Metab Screen Negative (YEZWMX=683) U Marijuana (THC) Screen Negative (CUTOFF=50) Ethyl Alcohol (0.00) gm% Influenza Type A RNA Negative (NEGATIVE) Influenza Type B RNA Negative (NEGATIVE) SARS-CoV-2 RNA (UTE) Negative (NEGATIVE) Result Diagrams: 11/30/20 13:00 11/30/20 13:00 Sepsis Event Note - Evaluation Sepsis Screening Result: No Definite Risk - Focused Exam Vital Signs: Vital Signs Temp Pulse Resp BP Pulse Ox 11/30/20 12:59 97.4 F 103 H 16 165/107 H 93 L Problem List Initiated/Reviewed/Updated: Yes Orders Last 24hrs: Active Orders 24 hr Category Date Time Status Patient Status [ADT] Routine ADT 11/30/20 20:21 Active CIWAA Assessment [RC] Q15M Care 11/30/20 20:32 Active CIWAA Assessment [RC] Q1H Care 11/30/20 20:32 Active CIWAA Assessment [RC] Q30M Care 11/30/20 20:32 Active CIWAA Assessment [RC] Q4H Care 11/30/20 20:32 Active Cardiac Monitoring [RC] . DIRECTED Care 11/30/20 20:32 Active Notify Provider [RC] PRN Care 11/30/20 20:32 Active Oxygen Therapy [RC] PRN Care 11/30/20 20:21 Active Peripheral IV Care [RC] . DIRECTED Care 11/30/20 13:31 Active Pulse Oximetry [RC] PRN Care 11/30/20 20:22 Active Up With Assistance [RC] ASDIRECTED Care 11/30/20 20:21 Active VTE/DVT Education [RC] PER UNIT ROUTINE Care 11/30/20 20:21 Active Vital Signs [RC] Q4H Care 11/30/20 20:21 Active Consult to Case Management/Lamp Developer [CONS] Cons 11/30/20 20:32 Active Routine Regular Diet [DIET] Diet 11/30/20 Breakfast Active BASIC METABOLIC PANEL,BMP [CHEM] DAILY Lab 12/01/20 06:00 Ordered BASIC METABOLIC PANEL,BMP [CHEM] DAILY Lab 12/02/20 06:00 Ordered BASIC METABOLIC PANEL,BMP [CHEM] DAILY Lab 12/03/20 06:00 Ordered BASIC METABOLIC PANEL,BMP [CHEM] DAILY Lab 12/04/20 06:00 Ordered LORazepam [Ativan] Med 11/30/20 20:45 Ordered See Protocol IV ASDIRECTED LORazepam [Ativan] Med 11/30/20 20:45 Ordered See Protocol PO ASDIRECTED Metoprolol Tartrate [Lopressor] Med 11/30/20 20:32 Ordered 25 mg PO Q6H PRN Ondansetron [Zofran] Med 11/30/20 20:32 Ordered 4 mg IVPUSH Q4H PRN Pantoprazole [ProTONIX IV] Med 11/30/20 20:45 Ordered 40 mg IV DAILY Sodium Chloride 0.9% [Saline Flush] Med 11/30/20 13:31 Active 10 ml FLUSH ASDIRECTED PRN Peripheral IV Insertion Adult [OM.PC] Stat Oth 11/30/20 13:31 Ordered Resuscitation Status Routine Resus Stat 11/30/20 20:21 Ordered Medication Orders Lorazepam (Lorazepam 2 Mg/Ml Sdv) 0 mg IV ASDIRECTED RUBEN; Protocol Lorazepam (Lorazepam 1 Mg Tab) 0 mg PO ASDIRECTED RUBEN; Protocol Metoprolol Tartrate (Metoprolol Tartrate 25 Mg Tab) 25 mg PO Q6H PRN PRN Reason: See Label Comment Ondansetron HCl (Ondansetron 4 Mg/2 Ml Sdv) 4 mg IVPUSH Q4H PRN PRN Reason: Nausea Pantoprazole Sodium (Pantoprazole 40 Mg Vial) 40 mg IV DAILY RUBEN Sodium Chloride (Sodium Chloride 0.9% 10 Ml Syringe) 10 ml FLUSH ASDIRECTED PRN PRN Reason: Keep Vein Open Last Admin: 11/30/20 13:46 Dose: 10 ml Documented by: KATEY Assessment/Plan Comment:: Patient is a 50-year-old male with a past medical history significant for many years of alcoholism with supposedly prior alcohol withdrawal syndrome with seizures in the field who presents to the [facility] emergency department earlier today under the influence Now wishing to undergo treatment for withdrawal and become sober. 1. Alcoholism. Admit to the hospitalist service for treatment of likely impending withdrawal symptoms. Patient has been given vitamin B replacements in the emergency department. Protonix IV daily. Monitor for alcohol withdrawal symptoms. Invoke CIWA protocol. Telemetry monitoring. As needed beta-blockade as instructed. Antiemetics as needed. Case management and social work consult in the morning. 2. Nicotine dependence. Nicotine patch as needed. CODE STATUS: Full code. DVT prophylaxis with heparin subcu. - Mortality Measure Prognosis:: Good
[2020-11-30] MEDS ORDERED: LORazepam 1 MG Tab PO SCH (20:45)
[2020-11-30] MEDS ORDERED: LORazepam 2 MG/ML SDV IV SCH (20:45)
[2020-11-30] MEDS: Pantoprazole 40 MG Vial IV SCH (21:14)
[2020-11-30] MEDS: Heparin Sodium 5,000 Units/ML Vial SUBCUT SCH (21:14)
[2020-12-01] MEDS: Heparin Sodium 5,000 Units/ML Vial SUBCUT SCH ×3 (04:21→20:08)
--- NOTE | 2020-12-01 07:36 | PCM.PN ---
<Abran Jennings - Last Filed: 12/01/20 08:57> - General Info Date of Service: 12/01/20 Admission Dx/Problem (Free Text): Admission Diagnosis/Problem Admission Diagnosis/Problem Alcoholism Functional Status: Reports: Pain Controlled, Tolerating Diet, Ambulating, Urinating, New Symptoms (starting to detox ) - Review of Systems General: Reports: Weakness, Fatigue, Malaise. Denies: Fever, Chills HEENT: Reports: No Symptoms. Denies: Headaches, Sore Throat Pulmonary: Reports: No Symptoms. Denies: Shortness of Breath, Cough, Sputum, Wheezing Cardiovascular: Reports: No Symptoms. Denies: Chest Pain, Palpitations, Dyspnea on Exertion Gastrointestinal: Reports: No Symptoms. Denies: Abdominal Pain, Constipation, Diarrhea, Nausea, Vomiting Genitourinary: Reports: No Symptoms. Denies: Pain Musculoskeletal: Reports: No Symptoms Skin: Reports: No Symptoms Neurological: Reports: Tremors. Denies: Confusion, Dizziness, Headache, Numbness, Pre-Existing Deficit, Seizure, Syncope, Tingling, Trouble Speaking, Difficulty Walking, Weakness, Gait Disturbance Psychiatric: Reports: No Symptoms - Patient Data Vitals - Most Recent: Last Vital Signs Temp 97.1 F 12/01/20 03:17 Pulse 85 12/01/20 03:17 Resp 18 12/01/20 03:17 BP 148/98 H 12/01/20 03:17 Pulse Ox 96 12/01/20 03:17 Weight - Most Recent: 220 lb 0.341 oz I&O - Last 24 Hours: Intake & Output 11/30/20 12/01/20 12/01/20 22:59 06:59 14:59 Output Total 650 Balance -650 Lab Results Last 24 Hours: Laboratory Results - last 24 hr 11/30/20 11/30/20 11/30/20 Range/Units 13:00 13:00 13:00 WBC 3.95 L (4.23-9.07) K/mm3 RBC 4.03 L (4.63-6.08) M/mm3 Hgb 14.8 (13.7-17.5) gm/dl Hct 43.5 (40.1-51.0) % MCV 107.9 H D (79.0-92.2) fl MCH 36.7 H (25.7-32.2) pg MCHC 34.0 (32.2-35.5) g/dl RDW Std Deviation 51.1 H (35.1-43.9) fL Plt Count 97 L (163-337) K/mm3 MPV 10.2 (9.4-12.3) fl Neut % (Auto) 34.0 (34.0-67.9) % Lymph % (Auto) 47.3 (21.8-53.1) % [place] % (Auto) 14.9 H (5.3-12.2) % Eos % (Auto) 2.5 (0.8-7.0) Baso % (Auto) 1.0 (0.1-1.2) % Neut # (Auto) 1.34 L (1.78-5.38) K/mm3 Lymph # (Auto) 1.87 (1.32-3.57) K/mm3 [place] # (Auto) 0.59 (0.30-0.82) K/mm3 Eos # (Auto) 0.10 (0.04-0.54) K/mm3 Baso # (Auto) 0.04 (0.01-0.08) K/mm3 Manual Slide Review Normal smear PT 10.8 (9.7-12.0) SECONDS INR 1.01 Sodium 146 H (136-145) mEq/L Potassium 4.1 (3.5-5.1) mEq/L Chloride 107 (98-107) mEq/L Carbon Dioxide 24 (21-32) mEq/L Anion Gap 19.1 H (5-15) BUN 6 L (7-18) mg/dL Creatinine 0.6 L (0.7-1.3) mg/dL Est Cr Clr Drug Dosing 153.39 mL/min Estimated GFR (MDRD) > 60 (>60) mL/min BUN/Creatinine Ratio 10.0 L (14-18) Glucose 107 H (70-99) mg/dL Calcium 8.3 L (8.5-10.1) mg/dL Magnesium 1.9 (1.8-2.4) mg/dL Total Bilirubin 0.3 (0.2-1.0) mg/dL AST 100 H (15-37) U/L ALT 82 H (16-63) U/L Alkaline Phosphatase 154 H (46-116) U/L Total Protein 8.5 H (6.4-8.2) g/dl Albumin 4.2 (3.4-5.0) g/dl Globulin 4.3 gm/dL Albumin/Globulin Ratio 1.0 (1-2) Urine Opiates Screen (TDDDPE=700) Ur Buprenorphine Scrn (CUTOFF=10) Ur Oxycodone Screen (ZYQ3PW=817) Urine Methadone Screen (IQP6SN=420) Ur Propoxyphene Screen (FACGMW=661) Ur Barbiturates Screen (HMUCZN=334) Ur Tricyclics Screen (UBLCXN=032) Ur Phencyclidine Scrn (CUTOFF=25) Ur Amphetamine Screen (QECTDS=813) U Methamphetamines Scrn (OCRLOE=453) U Benzodiazepines Scrn (PCCYUL=599) U Cocaine Metab Screen (ZFBPCB=401) U Marijuana (THC) Screen (CUTOFF=50) Ethyl Alcohol 0.49 (0.00) gm% Influenza Type A RNA (NEGATIVE) Influenza Type B RNA (NEGATIVE) SARS-CoV-2 RNA (UTE) (NEGATIVE) 11/30/20 11/30/20 12/01/20 Range/Units 13:45 19:47 05:55 WBC (4.23-9.07) K/mm3 RBC (4.63-6.08) M/mm3 Hgb (13.7-17.5) gm/dl Hct (40.1-51.0) % MCV (79.0-92.2) fl MCH (25.7-32.2) pg MCHC (32.2-35.5) g/dl RDW Std Deviation (35.1-43.9) fL Plt Count (163-337) K/mm3 MPV (9.4-12.3) fl Neut % (Auto) (34.0-67.9) % Lymph % (Auto) (21.8-53.1) % [place] % (Auto) (5.3-12.2) % Eos % (Auto) (0.8-7.0) Baso % (Auto) (0.1-1.2) % Neut # (Auto) (1.78-5.38) K/mm3 Lymph # (Auto) (1.32-3.57) K/mm3 [place] # (Auto) (0.30-0.82) K/mm3 Eos # (Auto) (0.04-0.54) K/mm3 Baso # (Auto) (0.01-0.08) K/mm3 Manual Slide Review PT (9.7-12.0) SECONDS INR Sodium 144 (136-145) mEq/L Potassium 3.8 (3.5-5.1) mEq/L Chloride 106 (98-107) mEq/L Carbon Dioxide 27 (21-32) mEq/L Anion Gap 14.8 (5-15) BUN 6 L (7-18) mg/dL Creatinine 0.7 (0.7-1.3) mg/dL Est Cr Clr Drug Dosing 131.48 mL/min Estimated GFR (MDRD) > 60 (>60) mL/min BUN/Creatinine Ratio 8.6 L (14-18) Glucose 79 (70-99) mg/dL Calcium 8.0 L (8.5-10.1) mg/dL Magnesium (1.8-2.4) mg/dL Total Bilirubin (0.2-1.0) mg/dL AST (15-37) U/L ALT (16-63) U/L Alkaline Phosphatase (46-116) U/L Total Protein (6.4-8.2) g/dl Albumin (3.4-5.0) g/dl Globulin gm/dL Albumin/Globulin Ratio (1-2) Urine Opiates Screen Negative (RLYWQO=871) Ur Buprenorphine Scrn Negative (CUTOFF=10) Ur Oxycodone Screen Negative (CPF3VH=802) Urine Methadone Screen Negative (DLU2YO=555) Ur Propoxyphene Screen Negative (MWVBPK=679) Ur Barbiturates Screen Negative (AZXJHQ=979) Ur Tricyclics Screen Negative (ZDFXGV=822) Ur Phencyclidine Scrn Negative (CUTOFF=25) Ur Amphetamine Screen Negative (DVQCLC=637) U Methamphetamines Scrn Negative (ZUHVWD=023) U Benzodiazepines Scrn Negative (JGAWDG=553) U Cocaine Metab Screen Negative (LVGBRK=114) U Marijuana (THC) Screen Negative (CUTOFF=50) Ethyl Alcohol (0.00) gm% Influenza Type A RNA Negative (NEGATIVE) Influenza Type B RNA Negative (NEGATIVE) SARS-CoV-2 RNA (UTE) Negative (NEGATIVE) Med Orders - Current: Current Medications Heparin Sodium (Porcine) (Heparin Sodium 5,000 Units/Ml Vial) 5,000 units SUBCUT Q8H RUBEN Last Admin: 12/01/20 04:21 Dose: 5,000 units Documented by: Lorazepam (Lorazepam 2 Mg/Ml Sdv) 0 mg IV ASDIRECTED RUBEN; Protocol Last Admin: 12/01/20 02:01 Dose: 1 mg Documented by: Lorazepam (Lorazepam 1 Mg Tab) 0 mg PO ASDIRECTED RUBEN; Protocol Metoprolol Tartrate (Metoprolol Tartrate 25 Mg Tab) 25 mg PO Q6H PRN PRN Reason: See Label Comment Ondansetron HCl (Ondansetron 4 Mg/2 Ml Sdv) 4 mg IVPUSH Q4H PRN PRN Reason: Nausea Pantoprazole Sodium (Pantoprazole 40 Mg Vial) 40 mg IV DAILY RUBEN Last Admin: 11/30/20 21:14 Dose: 40 mg Documented by: Sodium Chloride (Sodium Chloride 0.9% 10 Ml Syringe) 10 ml FLUSH ASDIRECTED PRN PRN Reason: Keep Vein Open Last Admin: 11/30/20 13:46 Dose: 10 ml Documented by: Discontinued Medications Folic Acid (Folic Acid 1 Mg Tab) 1 mg PO ONETIME ONE Stop: 11/30/20 13:32 Last Admin: 11/30/20 13:46 Dose: 1 mg Documented by: Sodium Chloride (Normal Saline) 1,000 mls @ 999 mls/hr IV ONETIME ONE Stop: 11/30/20 14:31 Last Admin: 11/30/20 13:45 Dose: 999 mls/hr Documented by: Sodium Chloride (Normal Saline) 1,000 mls @ 500 mls/hr IV ONETIME ONE Stop: 11/30/20 16:30 Last Admin: 11/30/20 15:11 Dose: 500 mls/hr Documented by: Sodium Chloride (Normal Saline) 1,000 mls @ 500 mls/hr IV ONETIME ONE Stop: 11/30/20 19:37 Last Admin: 11/30/20 17:45 Dose: 500 mls/hr Documented by: Lorazepam (Lorazepam 2 Mg/Ml Sdv) 2 mg IVPUSH ONETIME ONE Stop: 11/30/20 14:39 Last Admin: 11/30/20 15:20 Dose: 2 mg Documented by: Metoclopramide HCl (Metoclopramide 10 Mg/2 Ml Sdv) 10 mg IVPUSH ONETIME ONE Stop: 11/30/20 13:32 Last Admin: 11/30/20 13:46 Dose: 10 mg Documented by: Thiamine HCl (Thiamine 100 Mg Tab) 100 mg PO ONETIME ONE Stop: 11/30/20 13:32 Last Admin: 11/30/20 13:46 Dose: 100 mg Documented by: - Exam Quality Assessment: DVT Prophylaxis. No: Supplemental Oxygen, Urine Catheter General: Alert, Oriented, Cooperative, No Acute Distress HEENT: Pupils Equal, Pupils Reactive, Mucous Membr. Moist/[place] Neck: Supple, Trachea Midline Lungs: Clear to Auscultation, Normal Respiratory Effort Cardiovascular: Regular Rate, Regular Rhythm GI/Abdominal Exam: Normal Bowel Sounds, Soft, Non-Tender, No Distention (Male) Exam: Deferred Back Exam: Normal Inspection, Full Range of Motion Extremities: Normal Inspection, Normal Range of Motion, Non-Tender, No Pedal Edema, Normal Capillary Refill Peripheral Pulses: 3+: Radial (L), Radial (R), Dorsalis Pedis (L), Dorsalis Pedis (R) Skin: Warm, Dry, Intact Neurological: No New Focal Deficit Psy/Mental Status: Alert, Normal Affect, Anxious, Withdrawal Symptoms. No: La bile Mood, Agitated, Hallucinations - Patient Data Lab Results Last 24 hrs: Laboratory Results - last 24 hr 11/30/20 11/30/20 11/30/20 Range/Units 13:00 13:00 13:00 WBC 3.95 L (4.23-9.07) K/mm3 RBC 4.03 L (4.63-6.08) M/mm3 Hgb 14.8 (13.7-17.5) gm/dl Hct 43.5 (40.1-51.0) % MCV 107.9 H D (79.0-92.2) fl MCH 36.7 H (25.7-32.2) pg MCHC 34.0 (32.2-35.5) g/dl RDW Std Deviation 51.1 H (35.1-43.9) fL Plt Count 97 L (163-337) K/mm3 MPV 10.2 (9.4-12.3) fl Neut % (Auto) 34.0 (34.0-67.9) % Lymph % (Auto) 47.3 (21.8-53.1) % [place] % (Auto) 14.9 H (5.3-12.2) % Eos % (Auto) 2.5 (0.8-7.0) Baso % (Auto) 1.0 (0.1-1.2) % Neut # (Auto) 1.34 L (1.78-5.38) K/mm3 Lymph # (Auto) 1.87 (1.32-3.57) K/mm3 [place] # (Auto) 0.59 (0.30-0.82) K/mm3 Eos # (Auto) 0.10 (0.04-0.54) K/mm3 Baso # (Auto) 0.04 (0.01-0.08) K/mm3 Manual Slide Review Normal smear PT 10.8 (9.7-12.0) SECONDS INR 1.01 Sodium 146 H (136-145) mEq/L Potassium 4.1 (3.5-5.1) mEq/L Chloride 107 (98-107) mEq/L Carbon Dioxide 24 (21-32) mEq/L Anion Gap 19.1 H (5-15) BUN 6 L (7-18) mg/dL Creatinine 0.6 L (0.7-1.3) mg/dL Est Cr Clr Drug Dosing 153.39 mL/min Estimated GFR (MDRD) > 60 (>60) mL/min BUN/Creatinine Ratio 10.0 L (14-18) Glucose 107 H (70-99) mg/dL Calcium 8.3 L (8.5-10.1) mg/dL Magnesium 1.9 (1.8-2.4) mg/dL Total Bilirubin 0.3 (0.2-1.0) mg/dL AST 100 H (15-37) U/L ALT 82 H (16-63) U/L Alkaline Phosphatase 154 H (46-116) U/L Total Protein 8.5 H (6.4-8.2) g/dl Albumin 4.2 (3.4-5.0) g/dl Globulin 4.3 gm/dL Albumin/Globulin Ratio 1.0 (1-2) Urine Opiates Screen (HATSYQ=567) Ur Buprenorphine Scrn (CUTOFF=10) Ur Oxycodone Screen (TIH5MZ=417) Urine Methadone Screen (WRN3HY=968) Ur Propoxyphene Screen (HATCGG=492) Ur Barbiturates Screen (KFYVDP=121) Ur Tricyclics Screen (ZNLCBZ=247) Ur Phencyclidine Scrn (CUTOFF=25) Ur Amphetamine Screen (WOPSCN=315) U Methamphetamines Scrn (UXVDAX=339) U Benzodiazepines Scrn (FYXSQN=343) U Cocaine Metab Screen (NEBDMQ=234) U Marijuana (THC) Screen (CUTOFF=50) Ethyl Alcohol 0.49 (0.00) gm% Influenza Type A RNA (NEGATIVE) Influenza Type B RNA (NEGATIVE) SARS-CoV-2 RNA (UTE) (NEGATIVE) 11/30/20 11/30/20 12/01/20 Range/Units 13:45 19:47 05:55 WBC (4.23-9.07) K/mm3 RBC (4.63-6.08) M/mm3 Hgb (13.7-17.5) gm/dl Hct (40.1-51.0) % MCV (79.0-92.2) fl MCH (25.7-32.2) pg MCHC (32.2-35.5) g/dl RDW Std Deviation (35.1-43.9) fL Plt Count (163-337) K/mm3 MPV (9.4-12.3) fl Neut % (Auto) (34.0-67.9) % Lymph % (Auto) (21.8-53.1) % [place] % (Auto) (5.3-12.2) % Eos % (Auto) (0.8-7.0) Baso % (Auto) (0.1-1.2) % Neut # (Auto) (1.78-5.38) K/mm3 Lymph # (Auto) (1.32-3.57) K/mm3 [place] # (Auto) (0.30-0.82) K/mm3 Eos # (Auto) (0.04-0.54) K/mm3 Baso # (Auto) (0.01-0.08) K/mm3 Manual Slide Review PT (9.7-12.0) SECONDS INR Sodium 144 (136-145) mEq/L Potassium 3.8 (3.5-5.1) mEq/L Chloride 106 (98-107) mEq/L Carbon Dioxide 27 (21-32) mEq/L Anion Gap 14.8 (5-15) BUN 6 L (7-18) mg/dL Creatinine 0.7 (0.7-1.3) mg/dL Est Cr Clr Drug Dosing 131.48 mL/min Estimated GFR (MDRD) > 60 (>60) mL/min BUN/Creatinine Ratio 8.6 L (14-18) Glucose 79 (70-99) mg/dL Calcium 8.0 L (8.5-10.1) mg/dL Magnesium (1.8-2.4) mg/dL Total Bilirubin (0.2-1.0) mg/dL AST (15-37) U/L ALT (16-63) U/L Alkaline Phosphatase (46-116) U/L Total Protein (6.4-8.2) g/dl Albumin (3.4-5.0) g/dl Globulin gm/dL Albumin/Globulin Ratio (1-2) Urine Opiates Screen Negative (YTHCQN=338) Ur Buprenorphine Scrn Negative (CUTOFF=10) Ur Oxycodone Screen Negative (EGG5JM=964) Urine Methadone Screen Negative (ENF1IX=717) Ur Propoxyphene Screen Negative (WCJBFA=602) Ur Barbiturates Screen Negative (JAAWZU=035) Ur Tricyclics Screen Negative (HWQTYS=051) Ur Phencyclidine Scrn Negative (CUTOFF=25) Ur Amphetamine Screen Negative (GUQMMR=195) U Methamphetamines Scrn Negative (XPMPAW=815) U Benzodiazepines Scrn Negative (MAVOTB=265) U Cocaine Metab Screen Negative (LKRHPG=785) U Marijuana (THC) Screen Negative (CUTOFF=50) Ethyl Alcohol (0.00) gm% Influenza Type A RNA Negative (NEGATIVE) Influenza Type B RNA Negative (NEGATIVE) SARS-CoV-2 RNA (UTE) Negative (NEGATIVE) Result Diagrams: 11/30/20 13:00 12/01/20 05:55 Sepsis Event Note - Evaluation Sepsis Screening Result: No Definite Risk - Focused Exam Vital Signs: Vital Signs Temp Pulse Resp BP Pulse Ox 12/01/20 03:17 97.1 F 85 18 148/98 H 96 12/01/20 00:00 98.4 F 17 143/97 H 97 11/30/20 21:15 97.4 F 18 156/102 H 92 L - Problem List & Annotations (1) Alcohol dependence, binge pattern SNOMED Code(s): 813139982 Code(s): F10.20 - ALCOHOL DEPENDENCE, UNCOMPLICATED Status: Chronic Priority: High Current Visit: Yes (2) Alcohol withdrawal SNOMED Code(s): 383300932 Code(s): F10.239 - ALCOHOL DEPENDENCE WITH WITHDRAWAL, UNSPECIFIED Status: Acute Priority: High Current Visit: Yes Qualifiers: Complication of substance-induced condition: uncomplicated Qualified Code(s): F10.230 - Alcohol dependence with withdrawal, uncomplicated (3) Nicotine dependence SNOMED Code(s): 24660127 Code(s): F17.200 - NICOTINE DEPENDENCE, UNSPECIFIED, UNCOMPLICATED Status: Chronic Priority: Medium Current Visit: Yes Qualifiers: Nicotine product type: cigarettes Substance use status: unspecified nicotine-induced disorder Qualified Code(s): F17.219 - Nicotine dependence, cigarettes, with unspecified nicotine-induced disorders - Problem List Review Problem List Initiated/Reviewed/Updated: Yes - Assessment Assessment:: 12/01/2020 This is a 50-year-old male who presents to ED on 11/30/2020 asking for assistance with alcohol abuse. States he drinks 18 cans of beer a day on a daily basis and has been doing this for multiple years. He also has several bottles of alcohol on his person. He was noted to be quite emotional in the ED. Urine drug screen on admission was negative however ethyl alcohol was 0.49. Today labs are obtained showing a sodium of 144 with a potassium of 3.8. Chloride 106. Carbon oxide 27. Anion gap 14.8. BUN is 6. Creatinine 0.7. GFR greater than 60. Glucose is 79. Calcium 8.0. CIWA scores been noted to be anywhere from 5-8. Patient does state that he is starting to feel pretty rough and he is noted to have tremors. He is a current 1 pack a day smoker and does have a nicotine patch is ordered. He carries a history of hypertension, alcohol addiction, nicotine use, and obesity. He does reportedly have a history of alcohol withdrawal seizures. He remains in our ICU on CIWA protocol. Thiamine is being supplemented. We will continue current treatment plan. Unknown length of stay as it will depend on how the patient progresses with his detox. - Plan Plan:: Patient is a 50-year-old male with a past medical history significant for many years of alcoholism with supposedly prior alcohol withdrawal syndrome with seizures in the field who presents to the [facility] emergency department earlier today under the influence Now wishing to undergo treatment for withdrawal and become sober. 1. Alcoholism/Alcohol withdrawal/reported history of ETOH withdrawal seizures Admit to the hospitalist service for treatment of likely impending withdrawal symptoms. Patient has been given vitamin B replacement in the emergency department. Continue for 3 days total Protonix IV daily. Monitor for alcohol withdrawal symptoms. Invoke CIWA protocol. Telemetry monitoring. As needed beta-blockade as instructed. Antiemetics as needed. Case management and social work consult. Seizure precautions Daily labs 2. Nicotine dependence. Nicotine patch as needed. Cessation counseling CODE STATUS: Full code. DVT prophylaxis with heparin subcu. <Jin Argueta Jr - Last Filed: 12/01/20 13:34> - Patient Data Vitals - Most Recent: Last Vital Signs Temp 98 F 12/01/20 08:00 Pulse 98 12/01/20 08:00 Resp 18 12/01/20 08:00 BP 167/108 H 12/01/20 08:00 Pulse Ox 97 12/01/20 08:00 I&O - Last 24 Hours: Intake & Output 11/30/20 12/01/20 12/01/20 22:59 06:59 14:59 Output Total 650 800 Balance -650 -800 Lab Results Last 24 Hours: Laboratory Results - last 24 hr 11/30/20 11/30/20 11/30/20 Range/Units 13:00 13:00 13:00 WBC 3.95 L (4.23-9.07) K/mm3 RBC 4.03 L (4.63-6.08) M/mm3 Hgb 14.8 (13.7-17.5) gm/dl Hct 43.5 (40.1-51.0) % MCV 107.9 H D (79.0-92.2) fl MCH 36.7 H (25.7-32.2) pg MCHC 34.0 (32.2-35.5) g/dl RDW Std Deviation 51.1 H (35.1-43.9) fL Plt Count 97 L (163-337) K/mm3 MPV 10.2 (9.4-12.3) fl Neut % (Auto) 34.0 (34.0-67.9) % Lymph % (Auto) 47.3 (21.8-53.1) % [place] % (Auto) 14.9 H (5.3-12.2) % Eos % (Auto) 2.5 (0.8-7.0) Baso % (Auto) 1.0 (0.1-1.2) % Neut # (Auto) 1.34 L (1.78-5.38) K/mm3 Lymph # (Auto) 1.87 (1.32-3.57) K/mm3 [place] # (Auto) 0.59 (0.30-0.82) K/mm3 Eos # (Auto) 0.10 (0.04-0.54) K/mm3 Baso # (Auto) 0.04 (0.01-0.08) K/mm3 Manual Slide Review Normal smear PT 10.8 (9.7-12.0) SECONDS INR 1.01 Sodium 146 H (136-145) mEq/L Potassium 4.1 (3.5-5.1) mEq/L Chloride 107 (98-107) mEq/L Carbon Dioxide 24 (21-32) mEq/L Anion Gap 19.1 H (5-15) BUN 6 L (7-18) mg/dL Creatinine 0.6 L (0.7-1.3) mg/dL Est Cr Clr Drug Dosing 153.39 mL/min Estimated GFR (MDRD) > 60 (>60) mL/min BUN/Creatinine Ratio 10.0 L (14-18) Glucose 107 H (70-99) mg/dL Calcium 8.3 L (8.5-10.1) mg/dL Magnesium 1.9 (1.8-2.4) mg/dL Total Bilirubin 0.3 (0.2-1.0) mg/dL AST 100 H (15-37) U/L ALT 82 H (16-63) U/L Alkaline Phosphatase 154 H (46-116) U/L Total Protein 8.5 H (6.4-8.2) g/dl Albumin 4.2 (3.4-5.0) g/dl Globulin 4.3 gm/dL Albumin/Globulin Ratio 1.0 (1-2) Urine Opiates Screen (EFFZEK=977) Ur Buprenorphine Scrn (CUTOFF=10) Ur Oxycodone Screen (WNF9SW=841) Urine Methadone Screen (GXY4NA=203) Ur Propoxyphene Screen (EASVNO=369) Ur Barbiturates Screen (FUKFZE=743) Ur Tricyclics Screen (RJSDIG=101) Ur Phencyclidine Scrn (CUTOFF=25) Ur Amphetamine Screen (NTAKXF=210) U Methamphetamines Scrn (AHYUTV=695) U Benzodiazepines Scrn (GNQCZK=962) U Cocaine Metab Screen (QKANWB=791) U Marijuana (THC) Screen (CUTOFF=50) Ethyl Alcohol 0.49 (0.00) gm% Influenza Type A RNA (NEGATIVE) Influenza Type B RNA (NEGATIVE) SARS-CoV-2 RNA (UTE) (NEGATIVE) 11/30/20 11/30/20 12/01/20 Range/Units 13:45 19:47 05:55 WBC (4.23-9.07) K/mm3 RBC (4.63-6.08) M/mm3 Hgb (13.7-17.5) gm/dl Hct (40.1-51.0) % MCV (79.0-92.2) fl MCH (25.7-32.2) pg MCHC (32.2-35.5) g/dl RDW Std Deviation (35.1-43.9) fL Plt Count (163-337) K/mm3 MPV (9.4-12.3) fl Neut % (Auto) (34.0-67.9) % Lymph % (Auto) (21.8-53.1) % [place] % (Auto) (5.3-12.2) % Eos % (Auto) (0.8-7.0) Baso % (Auto) (0.1-1.2) % Neut # (Auto) (1.78-5.38) K/mm3 Lymph # (Auto) (1.32-3.57) K/mm3 [place] # (Auto) (0.30-0.82) K/mm3 Eos # (Auto) (0.04-0.54) K/mm3 Baso # (Auto) (0.01-0.08) K/mm3 Manual Slide Review PT (9.7-12.0) SECONDS INR Sodium 144 (136-145) mEq/L Potassium 3.8 (3.5-5.1) mEq/L Chloride 106 (98-107) mEq/L Carbon Dioxide 27 (21-32) mEq/L Anion Gap 14.8 (5-15) BUN 6 L (7-18) mg/dL Creatinine 0.7 (0.7-1.3) mg/dL Est Cr Clr Drug Dosing 131.48 mL/min Estimated GFR (MDRD) > 60 (>60) mL/min BUN/Creatinine Ratio 8.6 L (14-18) Glucose 79 (70-99) mg/dL Calcium 8.0 L (8.5-10.1) mg/dL Magnesium (1.8-2.4) mg/dL Total Bilirubin (0.2-1.0) mg/dL AST (15-37) U/L ALT (16-63) U/L Alkaline Phosphatase (46-116) U/L Total Protein (6.4-8.2) g/dl Albumin (3.4-5.0) g/dl Globulin gm/dL Albumin/Globulin Ratio (1-2) Urine Opiates Screen Negative (MYTNFL=324) Ur Buprenorphine Scrn Negative (CUTOFF=10) Ur Oxycodone Screen Negative (YQZ7QO=704) Urine Methadone Screen Negative (CES5UE=500) Ur Propoxyphene Screen Negative (PLRXQW=530) Ur Barbiturates Screen Negative (LNYTUY=547) Ur Tricyclics Screen Negative (JOXUYS=246) Ur Phencyclidine Scrn Negative (CUTOFF=25) Ur Amphetamine Screen Negative (FIXXCX=482) U Methamphetamines Scrn Negative (OUTSYI=761) U Benzodiazepines Scrn Negative (JDOIIA=872) U Cocaine Metab Screen Negative (SCDJXQ=255) U Marijuana (THC) Screen Negative (CUTOFF=50) Ethyl Alcohol (0.00) gm% Influenza Type A RNA Negative (NEGATIVE) Influenza Type B RNA Negative (NEGATIVE) SARS-CoV-2 RNA (UTE) Negative (NEGATIVE) Med Orders - Current: Current Medications Folic Acid (Folic Acid 1 Mg Tab) 1 mg PO DAILY RUBEN Stop: 12/03/20 09:01 Last Admin: 12/01/20 11:38 Dose: 1 mg Documented by: Heparin Sodium (Porcine) (Heparin Sodium 5,000 Units/Ml Vial) 5,000 units SUBCUT Q8H RUBEN Last Admin: 12/01/20 04:21 Dose: 5,000 units Documented by: Lorazepam (Lorazepam 2 Mg/Ml Sdv) 0 mg IV ASDIRECTED RUBEN; Protocol Last Admin: 12/01/20 02:01 Dose: 1 mg Documented by: Lorazepam (Lorazepam 1 Mg Tab) 0 mg PO ASDIRECTED RUBEN; Protocol Last Admin: 12/01/20 08:44 Dose: 1 mg Documented by: Lorazepam (Lorazepam 2 Mg/Ml Sdv) 2 mg IVPUSH Q3H RUBEN Last Admin: 12/01/20 11:37 Dose: 2 mg Documented by: Metoprolol Tartrate (Metoprolol Tartrate 25 Mg Tab) 25 mg PO Q6H PRN PRN Reason: See Label Comment Miscellaneous Information (Remove And Replace Nicotine Patch) 1 ea TRDERM DAILY [facility] Nicotine (Nicotine 21 Mg/24 Hr Patch) 21 mg TRDERM DAILY [facility] Last Admin: 12/01/20 11:36 Dose: 21 mg Documented by: Ondansetron HCl (Ondansetron 4 Mg/2 Ml Sdv) 4 mg IVPUSH Q4H PRN PRN Reason: Nausea Pantoprazole Sodium (Pantoprazole 40 Mg Vial) 40 mg IV DAILY [facility] Last Admin: 12/01/20 08:44 Dose: 40 mg Documented by: Sodium Chloride (Sodium Chloride 0.9% 10 Ml Syringe) 10 ml FLUSH ASDIRECTED PRN PRN Reason: Keep Vein Open Last Admin: 11/30/20 13:46 Dose: 10 ml Documented by: Discontinued Medications Folic Acid (Folic Acid 1 Mg Tab) 1 mg PO ONETIME ONE Stop: 11/30/20 13:32 Last Admin: 11/30/20 13:46 Dose: 1 mg Documented by: Sodium Chloride (Normal Saline) 1,000 mls @ 999 mls/hr IV ONETIME ONE Stop: 11/30/20 14:31 Last Admin: 11/30/20 13:45 Dose: 999 mls/hr Documented by: Sodium Chloride (Normal Saline) 1,000 mls @ 500 mls/hr IV ONETIME ONE Stop: 11/30/20 16:30 Last Admin: 11/30/20 15:11 Dose: 500 mls/hr Documented by: Sodium Chloride (Normal Saline) 1,000 mls @ 500 mls/hr IV ONETIME ONE Stop: 11/30/20 19:37 Last Admin: 11/30/20 17:45 Dose: 500 mls/hr Documented by: Lorazepam (Lorazepam 2 Mg/Ml Sdv) 2 mg IVPUSH ONETIME ONE Stop: 11/30/20 14:39 Last Admin: 11/30/20 15:20 Dose: 2 mg Documented by: Metoclopramide HCl (Metoclopramide 10 Mg/2 Ml Sdv) 10 mg IVPUSH ONETIME ONE Stop: 11/30/20 13:32 Last Admin: 11/30/20 13:46 Dose: 10 mg Documented by: Thiamine HCl (Thiamine 100 Mg Tab) 100 mg PO ONETIME ONE Stop: 11/30/20 13:32 Last Admin: 11/30/20 13:46 Dose: 100 mg Documented by: - Patient Data Lab Results Last 24 hrs: Laboratory Results - last 24 hr 11/30/20 11/30/20 11/30/20 Range/Units 13:00 13:00 13:00 WBC 3.95 L (4.23-9.07) K/mm3 RBC 4.03 L (4.63-6.08) M/mm3 Hgb 14.8 (13.7-17.5) gm/dl Hct 43.5 (40.1-51.0) % MCV 107.9 H D (79.0-92.2) fl MCH 36.7 H (25.7-32.2) pg MCHC 34.0 (32.2-35.5) g/dl RDW Std Deviation 51.1 H (35.1-43.9) fL Plt Count 97 L (163-337) K/mm3 MPV 10.2 (9.4-12.3) fl Neut % (Auto) 34.0 (34.0-67.9) % Lymph % (Auto) 47.3 (21.8-53.1) % [place] % (Auto) 14.9 H (5.3-12.2) % Eos % (Auto) 2.5 (0.8-7.0) Baso % (Auto) 1.0 (0.1-1.2) % Neut # (Auto) 1.34 L (1.78-5.38) K/mm3 Lymph # (Auto) 1.87 (1.32-3.57) K/mm3 [place] # (Auto) 0.59 (0.30-0.82) K/mm3 Eos # (Auto) 0.10 (0.04-0.54) K/mm3 Baso # (Auto) 0.04 (0.01-0.08) K/mm3 Manual Slide Review Normal smear PT 10.8 (9.7-12.0) SECONDS INR 1.01 Sodium 146 H (136-145) mEq/L Potassium 4.1 (3.5-5.1) mEq/L Chloride 107 (98-107) mEq/L Carbon Dioxide 24 (21-32) mEq/L Anion Gap 19.1 H (5-15) BUN 6 L (7-18) mg/dL Creatinine 0.6 L (0.7-1.3) mg/dL Est Cr Clr Drug Dosing 153.39 mL/min Estimated GFR (MDRD) > 60 (>60) mL/min BUN/Creatinine Ratio 10.0 L (14-18) Glucose 107 H (70-99) mg/dL Calcium 8.3 L (8.5-10.1) mg/dL Magnesium 1.9 (1.8-2.4) mg/dL Total Bilirubin 0.3 (0.2-1.0) mg/dL AST 100 H (15-37) U/L ALT 82 H (16-63) U/L Alkaline Phosphatase 154 H (46-116) U/L Total Protein 8.5 H (6.4-8.2) g/dl Albumin 4.2 (3.4-5.0) g/dl Globulin 4.3 gm/dL Albumin/Globulin Ratio 1.0 (1-2) Urine Opiates Screen (GDOCJR=858) Ur Buprenorphine Scrn (CUTOFF=10) Ur Oxycodone Screen (BFA3QN=707) Urine Methadone Screen (JTU1CU=873) Ur Propoxyphene Screen (HWBIPJ=519) Ur Barbiturates Screen (JHSREP=459) Ur Tricyclics Screen (HMYHFE=952) Ur Phencyclidine Scrn (CUTOFF=25) Ur Amphetamine Screen (COZOQR=639) U Methamphetamines Scrn (LJOTOL=237) U Benzodiazepines Scrn (AEGDRF=206) U Cocaine Metab Screen (OEYTYI=172) U Marijuana (THC) Screen (CUTOFF=50) Ethyl Alcohol 0.49 (0.00) gm% Influenza Type A RNA (NEGATIVE) Influenza Type B RNA (NEGATIVE) SARS-CoV-2 RNA (UTE) (NEGATIVE) 11/30/20 11/30/20 12/01/20 Range/Units 13:45 19:47 05:55 WBC (4.23-9.07) K/mm3 RBC (4.63-6.08) M/mm3 Hgb (13.7-17.5) gm/dl Hct (40.1-51.0) % MCV (79.0-92.2) fl MCH (25.7-32.2) pg MCHC (32.2-35.5) g/dl RDW Std Deviation (35.1-43.9) fL Plt Count (163-337) K/mm3 MPV (9.4-12.3) fl Neut % (Auto) (34.0-67.9) % Lymph % (Auto) (21.8-53.1) % [place] % (Auto) (5.3-12.2) % Eos % (Auto) (0.8-7.0) Baso % (Auto) (0.1-1.2) % Neut # (Auto) (1.78-5.38) K/mm3 Lymph # (Auto) (1.32-3.57) K/mm3 [place] # (Auto) (0.30-0.82) K/mm3 Eos # (Auto) (0.04-0.54) K/mm3 Baso # (Auto) (0.01-0.08) K/mm3 Manual Slide Review PT (9.7-12.0) SECONDS INR Sodium 144 (136-145) mEq/L Potassium 3.8 (3.5-5.1) mEq/L Chloride 106 (98-107) mEq/L Carbon Dioxide 27 (21-32) mEq/L Anion Gap 14.8 (5-15) BUN 6 L (7-18) mg/dL Creatinine 0.7 (0.7-1.3) mg/dL Est Cr Clr Drug Dosing 131.48 mL/min Estimated GFR (MDRD) > 60 (>60) mL/min BUN/Creatinine Ratio 8.6 L (14-18) Glucose 79 (70-99) mg/dL Calcium 8.0 L (8.5-10.1) mg/dL Magnesium (1.8-2.4) mg/dL Total Bilirubin (0.2-1.0) mg/dL AST (15-37) U/L ALT (16-63) U/L Alkaline Phosphatase (46-116) U/L Total Protein (6.4-8.2) g/dl Albumin (3.4-5.0) g/dl Globulin gm/dL Albumin/Globulin Ratio (1-2) Urine Opiates Screen Negative (RIATMF=071) Ur Buprenorphine Scrn Negative (CUTOFF=10) Ur Oxycodone Screen Negative (AZN9YI=488) Urine Methadone Screen Negative (KJL5FM=870) Ur Propoxyphene Screen Negative (IDSPUM=321) Ur Barbiturates Screen Negative (SZJCKO=927) Ur Tricyclics Screen Negative (QSUHSV=885) Ur Phencyclidine Scrn Negative (CUTOFF=25) Ur Amphetamine Screen Negative (YMTUHR=890) U Methamphetamines Scrn Negative (FJMKIV=032) U Benzodiazepines Scrn Negative (JGBDSJ=036) U Cocaine Metab Screen Negative (MXZUIC=894) U Marijuana (THC) Screen Negative (CUTOFF=50) Ethyl Alcohol (0.00) gm% Influenza Type A RNA Negative (NEGATIVE) Influenza Type B RNA Negative (NEGATIVE) SARS-CoV-2 RNA (UTE) Negative (NEGATIVE) Result Diagrams: 11/30/20 13:00 12/01/20 05:55 Sepsis Event Note - Focused Exam Vital Signs: Vital Signs Temp Pulse Resp BP Pulse Ox 12/01/20 08:00 98 F 98 18 167/108 H 97 12/01/20 03:17 97.1 F 85 18 148/98 H 96 - My Orders Last 24 Hours: My Active Orders 11/30/20 20:21 Patient Status [ADT] Routine Oxygen Therapy [RC] .PRN Up With Assistance [RC] ASDIRECTED VTE/DVT Education [RC] DAILY Vital Signs [RC] Q4HR Resuscitation Status Routine 11/30/20 20:22 Pulse Oximetry [RC] .PRN 11/30/20 20:32 CIWAA Assessment [RC] Q1HR Notify Provider [RC] .PRN Consult to Case Management/Graphics Software Engineer [CONS] Routine Metoprolol Tartrate [Lopressor] 25 mg PO Q6H PRN Ondansetron [Zofran] 4 mg IVPUSH Q4H PRN 11/30/20 20:45 Heparin Sodium 5,000 units SUBCUT Q8H LORazepam [Ativan] See Protocol IV ASDIRECTED LORazepam [Ativan] See Protocol PO ASDIRECTED Pantoprazole [ProTONIX IV] 40 mg IV DAILY 12/02/20 06:00 BASIC METABOLIC PANEL,BMP [CHEM] DAILY 12/03/20 06:00 BASIC METABOLIC PANEL,BMP [CHEM] DAILY 12/04/20 06:00 BASIC METABOLIC PANEL,BMP [CHEM] DAILY - Plan Plan:: Case discussed in full. Agree with evaluation, assessment and plan.
[2020-12-01] MEDS: Pantoprazole 40 MG Vial IV SCH (08:44)
[2020-12-01] MEDS: Nicotine 21 MG/24 Hr Patch TRDERM SCH (11:36)
[2020-12-01] MEDS: LORazepam 2 MG/ML SDV IVPUSH SCH ×5 (11:37→23:30)
[2020-12-01] MEDS: Folic Acid 1 MG Tab PO SCH (11:38)
[2020-12-01] MEDS: Metoprolol Tartrate 25 MG Tab PO PRN (20:25)
[2020-12-01] MEDS ORDERED: traZODone 50 MG Tab PO ONE (23:39)
[2020-12-02] MEDS: LORazepam 2 MG/ML SDV IVPUSH SCH ×5 (02:25→14:14)
[2020-12-02] MEDS: Heparin Sodium 5,000 Units/ML Vial SUBCUT SCH ×2 (05:08→11:54)
[2020-12-02] MEDS: Metoprolol Tartrate 25 MG Tab PO PRN (05:11)
[2020-12-02] MEDS: Nicotine 21 MG/24 Hr Patch TRDERM SCH (08:57)
[2020-12-02] MEDS: Folic Acid 1 MG Tab PO SCH (08:58)
[2020-12-02] MEDS: Potassium Chloride 20 MEQ Tab.ER PO SCH ×2 (09:06→14:14)
[2020-12-02] MEDS ORDERED: Magnesium Sulfate/Water 2 GM in Premix Bag 1 BAG IV ONE (09:06)
[2020-12-02] MEDS: Pantoprazole 40 MG Vial IV SCH (09:07)
[2020-12-02] MEDS ORDERED: Losartan 50 MG Tab PO SCH (13:15)
--- NOTE | 2020-12-02 13:44 | PCM.PN ---
<Abran Jennings - Last Filed: 12/02/20 13:44> - General Info Date of Service: 12/02/20 Admission Dx/Problem (Free Text): Admission Diagnosis/Problem Admission Diagnosis/Problem Alcoholism Functional Status: Reports: Pain Controlled, Tolerating Diet, Ambulating, Urinating. Denies: New Symptoms - Review of Systems General: Reports: No Symptoms. Denies: Fever, Weakness, Fatigue, Malaise, Chills HEENT: Reports: No Symptoms. Denies: Headaches, Sore Throat Pulmonary: Reports: No Symptoms. Denies: Shortness of Breath, Cough, Sputum, Wheezing Cardiovascular: Reports: No Symptoms. Denies: Chest Pain, Palpitations, Dyspnea on Exertion, Edema Gastrointestinal: Reports: No Symptoms. Denies: Abdominal Pain, Constipation, Diarrhea, Nausea, Vomiting Genitourinary: Reports: No Symptoms. Denies: Pain Musculoskeletal: Reports: No Symptoms Skin: Reports: No Symptoms. Denies: Cyanosis Neurological: Reports: No Symptoms. Denies: Confusion, Dizziness, Headache, Numbness, Tingling, Tremors, Difficulty Walking, Gait Disturbance Psychiatric: Reports: Cravings (nicotine ). Denies: Confusion, Mood Lability, Agitation, Hallucinations - Patient Data Vitals - Most Recent: Last Vital Signs Temp 98.4 F 12/02/20 09:19 Pulse 100 12/02/20 09:20 Resp 14 12/02/20 09:19 BP 158/103 H 12/02/20 09:20 Pulse Ox 97 12/02/20 09:20 Weight - Most Recent: 187 lb 6.4 oz I&O - Last 24 Hours: Intake & Output 12/01/20 12/02/20 12/02/20 22:59 06:59 14:59 Intake Total 1220 400 Output Total 600 Balance 620 400 Lab Results Last 24 Hours: Laboratory Results - last 24 hr 12/02/20 12/02/20 Range/Units 05:45 05:45 Sodium 139 (136-145) mEq/L Potassium 3.0 L (3.5-5.1) mEq/L Chloride 100 (98-107) mEq/L Carbon Dioxide 26 (21-32) mEq/L Anion Gap 16.0 H (5-15) BUN 7 (7-18) mg/dL Creatinine 0.8 (0.7-1.3) mg/dL Est Cr Clr Drug Dosing 115.04 mL/min Estimated GFR (MDRD) > 60 (>60) mL/min BUN/Creatinine Ratio 8.8 L (14-18) Glucose 90 (70-99) mg/dL Calcium 8.9 (8.5-10.1) mg/dL Magnesium 1.6 L (1.8-2.4) mg/dL Med Orders - Current: Current Medications Folic Acid (Folic Acid 1 Mg Tab) 1 mg PO DAILY [facility] Stop: 12/03/20 09:01 Last Admin: 12/02/20 08:58 Dose: 1 mg Documented by: Heparin Sodium (Porcine) (Heparin Sodium 5,000 Units/Ml Vial) 5,000 units SUBCUT Q8H [facility] Last Admin: 12/02/20 11:54 Dose: 5,000 units Documented by: Lorazepam (Lorazepam 2 Mg/Ml Sdv) 0 mg IV ASDIRECTED [facility]; Protocol Last Admin: 12/01/20 02:01 Dose: 1 mg Documented by: Lorazepam (Lorazepam 1 Mg Tab) 0 mg PO ASDIRECTED [facility]; Protocol Last Admin: 12/01/20 08:44 Dose: 1 mg Documented by: Lorazepam (Lorazepam 2 Mg/Ml Sdv) 2 mg IVPUSH Q3H [facility] Last Admin: 12/02/20 11:54 Dose: 2 mg Documented by: Losartan Potassium (Losartan 50 Mg Tab) 50 mg PO DAILY [facility] Magnesium Oxide (Magnesium Oxide 400 Mg Tab) 400 mg PO DAILY [facility] Metoprolol Tartrate (Metoprolol Tartrate 25 Mg Tab) 25 mg PO Q6H PRN PRN Reason: See Label Comment Last Admin: 12/02/20 05:11 Dose: 25 mg Documented by: Miscellaneous Information (Remove And Replace Nicotine Patch) 1 ea TRDERM DAILY [facility] Last Admin: 12/02/20 09:07 Dose: 1 ea Documented by: Nicotine (Nicotine 21 Mg/24 Hr Patch) 21 mg TRDERM DAILY [facility] Last Admin: 12/02/20 08:57 Dose: 21 mg Documented by: Ondansetron HCl (Ondansetron 4 Mg/2 Ml Sdv) 4 mg IVPUSH Q4H PRN PRN Reason: Nausea Pantoprazole Sodium (Pantoprazole 40 Mg Vial) 40 mg IV DAILY [facility] Last Admin: 12/02/20 09:07 Dose: 40 mg Documented by: Potassium Chloride (Potassium Chloride 20 Meq Tab.Er) 40 meq PO TID RUBEN Last Admin: 12/02/20 09:06 Dose: 40 meq Documented by: Sodium Chloride (Sodium Chloride 0.9% 10 Ml Syringe) 10 ml FLUSH ASDIRECTED PRN PRN Reason: Keep Vein Open Last Admin: 11/30/20 13:46 Dose: 10 ml Documented by: Discontinued Medications Folic Acid (Folic Acid 1 Mg Tab) 1 mg PO ONETIME ONE Stop: 11/30/20 13:32 Last Admin: 11/30/20 13:46 Dose: 1 mg Documented by: Sodium Chloride (Normal Saline) 1,000 mls @ 999 mls/hr IV ONETIME ONE Stop: 11/30/20 14:31 Last Admin: 11/30/20 13:45 Dose: 999 mls/hr Documented by: Sodium Chloride (Normal Saline) 1,000 mls @ 500 mls/hr IV ONETIME ONE Stop: 11/30/20 16:30 Last Admin: 11/30/20 15:11 Dose: 500 mls/hr Documented by: Sodium Chloride (Normal Saline) 1,000 mls @ 500 mls/hr IV ONETIME ONE Stop: 11/30/20 19:37 Last Admin: 11/30/20 17:45 Dose: 500 mls/hr Documented by: Magnesium Sulfate 2 gm/ Premix 50 mls @ 25 mls/hr IV ONETIME ONE Stop: 12/02/20 11:05 Last Admin: 12/02/20 09:08 Dose: 25 mls/hr Documented by: Lorazepam (Lorazepam 2 Mg/Ml Sdv) 2 mg IVPUSH ONETIME ONE Stop: 11/30/20 14:39 Last Admin: 11/30/20 15:20 Dose: 2 mg Documented by: Metoclopramide HCl (Metoclopramide 10 Mg/2 Ml Sdv) 10 mg IVPUSH ONETIME ONE Stop: 11/30/20 13:32 Last Admin: 11/30/20 13:46 Dose: 10 mg Documented by: Thiamine HCl (Thiamine 100 Mg Tab) 100 mg PO ONETIME ONE Stop: 11/30/20 13:32 Last Admin: 11/30/20 13:46 Dose: 100 mg Documented by: Trazodone HCl (Trazodone 50 Mg Tab) 50 mg PO ONETIME ONE Stop: 12/01/20 23:40 Last Admin: 12/01/20 23:52 Dose: 50 mg Documented by: - Exam Quality Assessment: DVT Prophylaxis. No: Supplemental Oxygen, Urine Catheter General: Alert, Oriented, Cooperative, No Acute Distress HEENT: Pupils Equal, Pupils Reactive, Mucous Membr. Moist/[place] Neck: Supple, Trachea Midline Lungs: Clear to Auscultation, Normal Respiratory Effort Cardiovascular: Regular Rate, Regular Rhythm GI/Abdominal Exam: Normal Bowel Sounds, Soft, Non-Tender, No Distention (Male) Exam: Deferred Back Exam: Normal Inspection, Full Range of Motion Extremities: Normal Inspection, Normal Range of Motion, Non-Tender, No Pedal Edema, Normal Capillary Refill Peripheral Pulses: 3+: Radial (L), Radial (R), Dorsalis Pedis (L), Dorsalis Pedis (R) Skin: Warm, Dry, Intact Neurological: No New Focal Deficit Psy/Mental Status: Alert, Anxious, Withdrawal Symptoms (improved ). No: Labile Mood, Agitated, Hallucinations - Patient Data Lab Results Last 24 hrs: Laboratory Results - last 24 hr 12/02/20 12/02/20 Range/Units 05:45 05:45 Sodium 139 (136-145) mEq/L Potassium 3.0 L (3.5-5.1) mEq/L Chloride 100 (98-107) mEq/L Carbon Dioxide 26 (21-32) mEq/L Anion Gap 16.0 H (5-15) BUN 7 (7-18) mg/dL Creatinine 0.8 (0.7-1.3) mg/dL Est Cr Clr Drug Dosing 115.04 mL/min Estimated GFR (MDRD) > 60 (>60) mL/min BUN/Creatinine Ratio 8.8 L (14-18) Glucose 90 (70-99) mg/dL Calcium 8.9 (8.5-10.1) mg/dL Magnesium 1.6 L (1.8-2.4) mg/dL Result Diagrams: 11/30/20 13:00 12/02/20 05:45 Sepsis Event Note - Evaluation Sepsis Screening Result: No Definite Risk - Focused Exam Vital Signs: Vital Signs Temp Pulse Resp BP Pulse Ox 12/02/20 09:20 100 158/103 H 97 12/02/20 09:19 98.4 F 96 14 96 12/02/20 06:52 93 171/117 H 96 12/02/20 05:12 100 163/105 H 96 12/02/20 05:11 100 163/105 H 12/02/20 03:50 98.1 F 91 18 162/99 H 94 L - Problem List & Annotations (1) Alcohol dependence, binge pattern SNOMED Code(s): 718071739 Code(s): F10.20 - ALCOHOL DEPENDENCE, UNCOMPLICATED Status: Chronic Priority: High (2) Alcohol withdrawal SNOMED Code(s): 567894675 Code(s): F10.239 - ALCOHOL DEPENDENCE WITH WITHDRAWAL, UNSPECIFIED Status: Acute Priority: High Qualifiers: Complication of substance-induced condition: uncomplicated Qualified Code(s): F10.230 - Alcohol dependence with withdrawal, uncomplicated (3) Nicotine dependence SNOMED Code(s): 14219981 Code(s): F17.200 - NICOTINE DEPENDENCE, UNSPECIFIED, UNCOMPLICATED Status: Chronic Priority: Medium Qualifiers: Nicotine product type: cigarettes Substance use status: unspecified nicotine-induced disorder Qualified Code(s): F17.219 - Nicotine dependence, cigarettes, with unspecified nicotine-induced disorders (4) Hypokalemia SNOMED Code(s): 17689788 Code(s): E87.6 - HYPOKALEMIA Status: Acute Priority: High (5) Hypomagnesemia SNOMED Code(s): 943853032 Code(s): E83.42 - HYPOMAGNESEMIA Status: Acute Priority: High (6) Hypertension SNOMED Code(s): 51530917 Code(s): I10 - ESSENTIAL (PRIMARY) HYPERTENSION Status: Acute Priority: High Qualifiers: Hypertension type: primary hypertension Qualified Code(s): I10 - Essential (primary) hypertension - Problem List Review Problem List Initiated/Reviewed/Updated: Yes - My Orders Last 24 Hours: My Active Orders 12/02/20 09:00 Remove Patch 1 ea TRDERM DAILY 12/02/20 09:05 Potassium Chloride [Klor-Con M20] 40 meq PO TID 12/02/20 13:15 Losartan [Cozaar] 50 mg PO DAILY 12/03/20 05:11 MAGNESIUM [CHEM] AM 12/03/20 09:00 Magnesium Oxide 400 mg PO DAILY 12/04/20 05:11 MAGNESIUM [CHEM] AM 12/05/20 05:11 MAGNESIUM [CHEM] AM - Assessment Assessment:: 12/01/2020 This is a 50-year-old male who presents to ED on 11/30/2020 asking for assistance with alcohol abuse. States he drinks 18 cans of beer a day on a daily basis and has been doing this for multiple years. He also has several bottles of alcohol on his person. He was noted to be quite emotional in the ED. Urine drug screen on admission was negative however ethyl alcohol was 0.49. Today labs are obtained showing a sodium of 144 with a potassium of 3.8. Chloride 106. Carbon oxide 27. Anion gap 14.8. BUN is 6. Creatinine 0.7. GFR greater than 60. Glucose is 79. Calcium 8.0. CIWA scores been noted to be anywhere from 5-8. Patient does state that he is starting to feel pretty rough and he is noted to have tremors. He is a current 1 pack a day smoker and does have a nicotine patch is ordered. He carries a history of hypertension, alcohol addiction, nicotine use, and obesity. He does reportedly have a history of alcohol withdrawal seizures. He remains in our ICU on CIWA protocol. Thiamine is being supplemented. We will continue current treatment plan. Unknown length of stay as it will depend on how the patient progresses with his detox. 12/02/2020 50-year-old male admitted for alcohol withdrawal with a history of withdrawal seizures. Overall patient has been doing quite well. CIWA scores in the past 24 hours have been 1-6. Patient is on scheduled Ativan along with as needed Ativan per CIWA protocol. Early this morning while examining patient strong cigarette smell was noted in the patient's room. He did admit that he smoked a half a cigarette in the bathroom. Advised patient that that is not allowed as there are concerns with oxygen and other patients in the building. Patient reported this will not happen again. Later this afternoon nursing reported that patient was caught smoking in his room again. Case management did remove patient's cigarettes and later from his room. He is already on a nicotine patch. Patient and family were requesting transfer to [facility]. Ultimately they refused as they do not feel that it is appropriate for a patient with a history of alcohol withdrawal seizures to be an ambulance for 4 to 5 hours due to his risk of seizure potential. They also noted that the patient will likely be there for a few days and that they will not be doing anything different than they will be here. Labs today show sodium of 139. Potassium is 3.0 and will be supplemented via 40 mill equivalent p.o. twice daily x3 doses. Chloride is 100. Carbon dioxide 26. Anion gap is slightly elevated 16.0. BUN is 7. Creatinine 0.8. GFR is 60. Magnesium is 1.6 and will be supplemented with 2 g IV magnesium. Otherwise as noted patient continues to detox but is overall doing quite well. His tremors have resolved. Unknown discharge plan as patient resolution of withdrawal symptoms will dictate appropriate discharge timing. - Plan Plan:: Patient is a 50-year-old male with a past medical history significant for many years of alcoholism with supposedly prior alcohol withdrawal syndrome with seizures in the field who presents to the [facility] emergency department earlier today under the influence Now wishing to undergo treatment for withdrawal and become sober. 1. Alcoholism/Alcohol withdrawal/reported history of ETOH withdrawal seizures Admit to the hospitalist service for treatment of likely impending withdrawal symptoms. Patient has been given vitamin B replacement in the emergency department. Continue for 3 days total Protonix IV daily. Monitor for alcohol withdrawal symptoms. Invoke CIWA protocol. Telemetry monitoring. As needed beta-blockade as instructed. Antiemetics as needed. Case management and social work consult. Seizure precautions Daily labs 2. Nicotine dependence. Nicotine patch as needed. Cessation counseling Patient caught smoking in room today x2 - nursing removed cigarettes and coil wrapper 3. Hypokalemia Supplement 40 mEq x3 doses Monitor labs 4. Hypomagnesemia Supplement 2gm today Start 400mg supplementation tomorrow Monitor labs 5. Hypertension Start losartan 50mg daily Monitor vital signs PCP follow-up PCP: Dr. Correa ([place]) CODE STATUS: Full code. DVT prophylaxis with heparin subcut. <Jin Argueta Jr - Last Filed: 12/02/20 18:31> - Patient Data Vitals - Most Recent: Last Vital Signs Temp 98.6 F 12/02/20 12:02 Pulse 106 H 12/02/20 12:02 Resp 18 12/02/20 12:02 BP 158/100 H 12/02/20 14:14 Pulse Ox 96 12/02/20 12:02 I&O - Last 24 Hours: Intake & Output 07/12/02/20 12/02/20 06:59 14:59 22:59 Intake Total 400 400 Balance 400 400 Lab Results Last 24 Hours: Laboratory Results - last 24 hr 12/02/20 12/02/20 Range/Units 05:45 05:45 Sodium 139 (136-145) mEq/L Potassium 3.0 L (3.5-5.1) mEq/L Chloride 100 (98-107) mEq/L Carbon Dioxide 26 (21-32) mEq/L Anion Gap 16.0 H (5-15) BUN 7 (7-18) mg/dL Creatinine 0.8 (0.7-1.3) mg/dL Est Cr Clr Drug Dosing 115.04 mL/min Estimated GFR (MDRD) > 60 (>60) mL/min BUN/Creatinine Ratio 8.8 L (14-18) Glucose 90 (70-99) mg/dL Calcium 8.9 (8.5-10.1) mg/dL Magnesium 1.6 L (1.8-2.4) mg/dL Med Orders - Current: Current Medications Discontinued Medications Folic Acid (Folic Acid 1 Mg Tab) 1 mg PO ONETIME ONE Stop: 11/30/20 13:32 Last Admin: 11/30/20 13:46 Dose: 1 mg Documented by: Folic Acid (Folic Acid 1 Mg Tab) 1 mg PO DAILY [facility] Stop: 12/03/20 09:01 Last Admin: 12/02/20 08:58 Dose: 1 mg Documented by: Heparin Sodium (Porcine) (Heparin Sodium 5,000 Units/Ml Vial) 5,000 units SUBCUT Q8H [facility] Last Admin: 12/02/20 11:54 Dose: 5,000 units Documented by: Sodium Chloride (Normal Saline) 1,000 mls @ 999 mls/hr IV ONETIME ONE Stop: 11/30/20 14:31 Last Admin: 11/30/20 13:45 Dose: 999 mls/hr Documented by: Sodium Chloride (Normal Saline) 1,000 mls @ 500 mls/hr IV ONETIME ONE Stop: 11/30/20 16:30 Last Admin: 11/30/20 15:11 Dose: 500 mls/hr Documented by: Sodium Chloride (Normal Saline) 1,000 mls @ 500 mls/hr IV ONETIME ONE Stop: 11/30/20 19:37 Last Admin: 11/30/20 17:45 Dose: 500 mls/hr Documented by: Magnesium Sulfate 2 gm/ Premix 50 mls @ 25 mls/hr IV ONETIME ONE Stop: 12/02/20 11:05 Last Admin: 12/02/20 09:08 Dose: 25 mls/hr Documented by: Lorazepam (Lorazepam 2 Mg/Ml Sdv) 2 mg IVPUSH ONETIME ONE Stop: 11/30/20 14:39 Last Admin: 11/30/20 15:20 Dose: 2 mg Documented by: Lorazepam (Lorazepam 2 Mg/Ml Sdv) 0 mg IV ASDIRECTED [facility]; Protocol Last Admin: 12/01/20 02:01 Dose: 1 mg Documented by: Lorazepam (Lorazepam 1 Mg Tab) 0 mg PO ASDIRECTED [facility]; Protocol Last Admin: 12/01/20 08:44 Dose: 1 mg Documented by: Lorazepam (Lorazepam 2 Mg/Ml Sdv) 2 mg IVPUSH Q3H [facility] Last Admin: 12/02/20 14:14 Dose: 2 mg Documented by: Losartan Potassium (Losartan 50 Mg Tab) 50 mg PO DAILY [facility] Last Admin: 12/02/20 14:14 Dose: 50 mg Documented by: Magnesium Oxide (Magnesium Oxide 400 Mg Tab) 400 mg PO DAILY [facility] Metoclopramide HCl (Metoclopramide 10 Mg/2 Ml Sdv) 10 mg IVPUSH ONETIME ONE Stop: 11/30/20 13:32 Last Admin: 11/30/20 13:46 Dose: 10 mg Documented by: Metoprolol Tartrate (Metoprolol Tartrate 25 Mg Tab) 25 mg PO Q6H PRN PRN Reason: See Label Comment Last Admin: 12/02/20 05:11 Dose: 25 mg Documented by: Miscellaneous Information (Remove And Replace Nicotine Patch) 1 ea TRDERM DAILY [facility] Last Admin: 12/02/20 09:07 Dose: 1 ea Documented by: Nicotine (Nicotine 21 Mg/24 Hr Patch) 21 mg TRDERM DAILY [facility] Last Admin: 12/02/20 08:57 Dose: 21 mg Documented by: Ondansetron HCl (Ondansetron 4 Mg/2 Ml Sdv) 4 mg IVPUSH Q4H PRN PRN Reason: Nausea Pantoprazole Sodium (Pantoprazole 40 Mg Vial) 40 mg IV DAILY [facility] Last Admin: 12/02/20 09:07 Dose: 40 mg Documented by: Potassium Chloride (Potassium Chloride 20 Meq Tab.Er) 40 meq PO TID RUBEN Last Admin: 12/02/20 14:14 Dose: 40 meq Documented by: Sodium Chloride (Sodium Chloride 0.9% 10 Ml Syringe) 10 ml FLUSH ASDIRECTED PRN PRN Reason: Keep Vein Open Last Admin: 11/30/20 13:46 Dose: 10 ml Documented by: Thiamine HCl (Thiamine 100 Mg Tab) 100 mg PO ONETIME ONE Stop: 11/30/20 13:32 Last Admin: 11/30/20 13:46 Dose: 100 mg Documented by: Trazodone HCl (Trazodone 50 Mg Tab) 50 mg PO ONETIME ONE Stop: 12/01/20 23:40 Last Admin: 12/01/20 23:52 Dose: 50 mg Documented by: - Patient Data Lab Results Last 24 hrs: Laboratory Results - last 24 hr 12/02/20 12/02/20 Range/Units 05:45 05:45 Sodium 139 (136-145) mEq/L Potassium 3.0 L (3.5-5.1) mEq/L Chloride 100 (98-107) mEq/L Carbon Dioxide 26 (21-32) mEq/L Anion Gap 16.0 H (5-15) BUN 7 (7-18) mg/dL Creatinine 0.8 (0.7-1.3) mg/dL Est Cr Clr Drug Dosing 115.04 mL/min Estimated GFR (MDRD) > 60 (>60) mL/min BUN/Creatinine Ratio 8.8 L (14-18) Glucose 90 (70-99) mg/dL Calcium 8.9 (8.5-10.1) mg/dL Magnesium 1.6 L (1.8-2.4) mg/dL Result Diagrams: 11/30/20 13:00 12/02/20 05:45 Sepsis Event Note - Focused Exam Vital Signs: Vital Signs Temp Pulse Resp BP Pulse Ox 12/02/20 14:14 158/100 H 12/02/20 12:02 98.6 F 106 H 18 166/105 H 96 12/02/20 09:20 100 158/103 H 97 12/02/20 09:19 98.4 F 96 14 96 12/02/20 06:52 93 171/117 H 96 - Plan Plan:: Case discussed in full. Agree with evaluation, assessment and plan.
--- NOTE | 2020-12-02 15:35 | PCM.DCSUM1 ---
Discharge Summary - Hospital Course Free Text/Narrative:: Patient is a 50-year-old male with a past medical history significant for many years of alcoholism with supposedly prior alcohol withdrawal syndrome with seizures in the field who presents to the [facility] emergency department earlier today under the influence Now wishing to undergo treatment for withdrawal and become sober. 1. Alcoholism/Alcohol withdrawal/reported history of ETOH withdrawal seizures Admitted to the hospitalist service for treatment of likely impending withdrawal symptoms. Patient has been given vitamin B replacement in the emergency department. Continue for 3 days total Protonix IV daily. Monitored for alcohol withdrawal symptoms. The CIWA protocol was invoked at the time of admission. Within 24 hours she was showing signs of anxiety, hypertension and bilateral tremor in the upper extremities. He was being treated with scheduled Ativan as well as as needed. Telemetry monitoring. As needed beta-blockade as instructed. Antiemetics as needed. Case management and social work consult. Seizure precautions Daily labs Patient CIWA scores were lower on 12/02/2020. Patient was able to communicate clearly. He was not hallucinating. Patient became more agitated at the fact that he cannot be transferred to the [place] on the other side to stay in [facility] for ongoing treatment. Patient wished to leave AGAINST MEDICAL ADVICE. The risk and benefits were discussed with the patient by the physician, nursing staff and social work. Patient understood the risk of possible seizure, status epilepticus and or . Patient had mental capacity. He signed an AMA form and left the hospital. 2. Nicotine dependence. Nicotine patch as needed. Cessation counseling Patient caught smoking in room today x2 - nursing removed cigarettes and sample case porter 3. Hypokalemia Supplement 40 mEq x3 doses Monitor labs 4. Hypomagnesemia Supplement 2gm today Start 400mg supplementation tomorrow Monitor labs 5. Hypertension Start losartan 50mg daily Monitor vital signs PCP follow-up PCP: Dr. Correa ([place]) CODE STATUS: Full code. DVT prophylaxis with heparin subcut. HPI Initial Comments: nitial Comments - Free Text/Narative: Patient is a 50-year-old male with a past medical history for alcoholism and supposedly alcohol withdrawal related seizures, who was never been hospitalized who presents to the [facility] emergency department earlier today by taxi exquisitely intoxicated. Patient presented to the ER earlier today with the intention to sober up. He apparently wants to stop drinking. Patient states that he has been drinking at least an 18 rack of light beer per day for many years. Occasionally he will have 16 ounce Pounders intermittently as well. Denies any hard liquor currently. No other drug use. He smokes a pack of cigarettes per day. He presented to the emergency department with a blood alcohol level over 400. He was allowed to sober up in the emergency department. A conversation was had between ER personnel and he after he sobered up and was answering questions. Patient wished that he could be admitted in order to stop drinking. For that reason the patient was referred to the internal medicine service for treatment of impending withdrawal. Patient states that is never been hospitalized for alcohol withdrawal before. He believes that he has had a seizure. This happened in [place]. He has obviously never been intubated. At current time, the patient denies any headache, shortness of breath, pleurisy, chest pain, nausea/vomiting, abdominal discomfort or difficulties with voiding. - Related Data Allergies/Adverse Reactions: Allergies Allergy/AdvReac Type Severity Reaction Status Date / Time No Known Allergies Allergy Verified 11/30/20 13:02 Home Medications: Home Meds . [No Known Home Meds] 04/30/20 [History] Past Medical History Cardiovascular History: Reports: Hypertension Psychiatric History: Reports: Addiction (alcohol/nicotine) Endocrine/Metabolic History: Reports: Obesity/BMI 30+ Social & Family History - Family History Family Medical History: No Pertinent Family History Cardiac: Reports: Pulmonary Hypertension - Tobacco Use Tobacco Use Status *Q: Current Every Day Tobacco User Years of Tobacco use: 25 Packs/Tins Daily: 1 - Caffeine Use Caffeine Use: Reports: Coffee - Alcohol Use Days Per Week of Alcohol Use: 7 - Recreational Drug Use Recreational Drug Use: No H&P Review of Systems - Review of Systems: Review Of Systems: Comprehensive ROS is negative, except as noted in HPI. Exam - Exam Exam: See Below - Vital Signs Vital Signs: Last Vital Signs Temp 97.4 F 11/30/20 12:59 Pulse 103 H 11/30/20 12:59 Resp 16 11/30/20 12:59 BP 165/107 H 11/30/20 12:59 Pulse Ox 93 L 11/30/20 12:59 Weight: 220 lb - Exam Physical Exam Comments:: General: Awake and alert, in no apparent distress. Nontoxic-appearing. HEENT: Normocephalic, atraumatic. Extra ocular muscles intact. Sclerae are injected. Pupils equal and reactive to light. Nares are patent. Oropharynx clear without erythema or exudate. Tongue is midline. Neck: Supple without lymphadenopathy. No goiter. Trachea midline. Heart: Regular rate and rhythm. S1 and S2 heard without murmur or extrasystoles. Lungs: Clear to auscultation bilaterally. No wheezing, rales, rhonchi. Abdomen: Soft, nontender, nondistended. Positive bowel sounds. No CVA tenderness. No suprapubic tenderness. Extremities: Warm and perfused. No clubbing, cyanosis, or edema. Integument: No obvious rash or jaundice. No lymphadenopathy. Neurologic: Cranial nerves II through XII grossly intact. No obvious gross motor or sensory deficits. Psychiatric: Normal mood and affect. Diagnosis: Stroke: No - Discharge Data Discharge Date: 12/02/20 Discharge Disposition: Against Medical Advice 07 Condition: Good - Referral to Home Health Primary Care Physician: Katelin Correa MD - Patient Summary/Data Consults: Consultations 11/30/20 20:32 Consult to Case Management/Senior Analyst [CONS] Routine - Patient Instructions Diet: Usual Diet as Tolerated Activity: As Tolerated - Discharge Plan *PRESCRIPTION DRUG MONITORING PROGRAM REVIEWED*: Not Applicable *COPY OF PRESCRIPTION DRUG MONITORING REPORT IN PATIENT [place]: Not Applicable Home Medications: Home Meds . [No Known Home Meds] 04/30/20 [History] Oxygen Therapy Mode: Room Air Patient Handouts: Alcohol Intoxication, [id number], Steps to Quit Smoking Forms: ED Department Discharge Referrals: Katelin Correa MD [Primary Care Provider] - - Discharge Summary/Plan Comment DC Time >30 min.: No - General Info Date of Service: 12/02/20 Admission Dx/Problem (Free Text: Admission Diagnosis/Problem Admission Diagnosis/Problem Alcoholism Subjective Update: Please see progress note from earlier in the day. - Patient Data Vitals - Most Recent: Last Vital Signs Temp 98.6 F 12/02/20 12:02 Pulse 106 H 12/02/20 12:02 Resp 18 12/02/20 12:02 BP 158/100 H 12/02/20 14:14 Pulse Ox 96 12/02/20 12:02 Weight - Most Recent: 187 lb 6.4 oz I&O - Last 24 hours: Intake & Output 07/16/21 07/16/21 07/16/21 06:59 14:59 22:59 Intake Total 400 Balance 400 Lab Results - Last 24 hrs: Laboratory Results - last 24 hr 12/02/20 12/02/20 Range/Units 05:45 05:45 Sodium 139 (136-145) mEq/L Potassium 3.0 L (3.5-5.1) mEq/L Chloride 100 (98-107) mEq/L Carbon Dioxide 26 (21-32) mEq/L Anion Gap 16.0 H (5-15) BUN 7 (7-18) mg/dL Creatinine 0.8 (0.7-1.3) mg/dL Est Cr Clr Drug Dosing 115.04 mL/min Estimated GFR (MDRD) > 60 (>60) mL/min BUN/Creatinine Ratio 8.8 L (14-18) Glucose 90 (70-99) mg/dL Calcium 8.9 (8.5-10.1) mg/dL Magnesium 1.6 L (1.8-2.4) mg/dL Med Orders - Current: Current Medications Folic Acid (Folic Acid 1 Mg Tab) 1 mg PO DAILY [facility] Stop: 12/03/20 09:01 Last Admin: 12/02/20 08:58 Dose: 1 mg Documented by: Heparin Sodium (Porcine) (Heparin Sodium 5,000 Units/Ml Vial) 5,000 units SUBCUT Q8H [facility] Last Admin: 12/02/20 11:54 Dose: 5,000 units Documented by: Lorazepam (Lorazepam 2 Mg/Ml Sdv) 0 mg IV ASDIRECTED RUBEN; Protocol Last Admin: 12/01/20 02:01 Dose: 1 mg Documented by: Lorazepam (Lorazepam 1 Mg Tab) 0 mg PO ASDIRECTED RUBEN; Protocol Last Admin: 12/01/20 08:44 Dose: 1 mg Documented by: Lorazepam (Lorazepam 2 Mg/Ml Sdv) 2 mg IVPUSH Q3H [facility] Last Admin: 12/02/20 14:14 Dose: 2 mg Documented by: Losartan Potassium (Losartan 50 Mg Tab) 50 mg PO DAILY [facility] Last Admin: 12/02/20 14:14 Dose: 50 mg Documented by: Magnesium Oxide (Magnesium Oxide 400 Mg Tab) 400 mg PO DAILY [facility] Metoprolol Tartrate (Metoprolol Tartrate 25 Mg Tab) 25 mg PO Q6H PRN PRN Reason: See Label Comment Last Admin: 12/02/20 05:11 Dose: 25 mg Documented by: Miscellaneous Information (Remove And Replace Nicotine Patch) 1 ea TRDERM DAILY [facility] Last Admin: 12/02/20 09:07 Dose: 1 ea Documented by: Nicotine (Nicotine 21 Mg/24 Hr Patch) 21 mg TRDERM DAILY [facility] Last Admin: 12/02/20 08:57 Dose: 21 mg Documented by: Ondansetron HCl (Ondansetron 4 Mg/2 Ml Sdv) 4 mg IVPUSH Q4H PRN PRN Reason: Nausea Pantoprazole Sodium (Pantoprazole 40 Mg Vial) 40 mg IV DAILY [facility] Last Admin: 12/02/20 09:07 Dose: 40 mg Documented by: Potassium Chloride (Potassium Chloride 20 Meq Tab.Er) 40 meq PO TID [facility] Last Admin: 12/02/20 14:14 Dose: 40 meq Documented by: Sodium Chloride (Sodium Chloride 0.9% 10 Ml Syringe) 10 ml FLUSH ASDIRECTED PRN PRN Reason: Keep Vein Open Last Admin: 11/30/20 13:46 Dose: 10 ml Documented by: Discontinued Medications Folic Acid (Folic Acid 1 Mg Tab) 1 mg PO ONETIME ONE Stop: 11/30/20 13:32 Last Admin: 11/30/20 13:46 Dose: 1 mg Documented by: Sodium Chloride (Normal Saline) 1,000 mls @ 999 mls/hr IV ONETIME ONE Stop: 11/30/20 14:31 Last Admin: 11/30/20 13:45 Dose: 999 mls/hr Documented by: Sodium Chloride (Normal Saline) 1,000 mls @ 500 mls/hr IV ONETIME ONE Stop: 11/30/20 16:30 Last Admin: 11/30/20 15:11 Dose: 500 mls/hr Documented by: Sodium Chloride (Normal Saline) 1,000 mls @ 500 mls/hr IV ONETIME ONE Stop: 11/30/20 19:37 Last Admin: 11/30/20 17:45 Dose: 500 mls/hr Documented by: Magnesium Sulfate 2 gm/ Premix 50 mls @ 25 mls/hr IV ONETIME ONE Stop: 12/02/20 11:05 Last Admin: 12/02/20 09:08 Dose: 25 mls/hr Documented by: Lorazepam (Lorazepam 2 Mg/Ml Sdv) 2 mg IVPUSH ONETIME ONE Stop: 11/30/20 14:39 Last Admin: 11/30/20 15:20 Dose: 2 mg Documented by: Metoclopramide HCl (Metoclopramide 10 Mg/2 Ml Sdv) 10 mg IVPUSH ONETIME ONE Stop: 11/30/20 13:32 Last Admin: 11/30/20 13:46 Dose: 10 mg Documented by: Thiamine HCl (Thiamine 100 Mg Tab) 100 mg PO ONETIME ONE Stop: 11/30/20 13:32 Last Admin: 11/30/20 13:46 Dose: 100 mg Documented by: Trazodone HCl (Trazodone 50 Mg Tab) 50 mg PO ONETIME ONE Stop: 12/01/20 23:40 Last Admin: 12/01/20 23:52 Dose: 50 mg Documented by: - Exam Physical Findings Comments:: Please see progress note from earlier in the day. At the time the patient signed out AMA it was visibly noticeable that he had a mild bilateral upper extremity tremor. He was also agitated.
[2020-12-03] MEDS ORDERED: Magnesium Oxide 400 MG Tab PO SCH (09:00)
== END 2020-12-02 15:35 | disposition left against medical advice (07) | DRG 894 ==
LOC: JD.ED 12:50 → JD.ICU 20:21 → JD.MS 12-01 23:50
PROVIDERS: ADMIT Hospitalist; ATTEND Hospitalist
DX: F10.230 Alcohol dependence with withdrawal, uncomplicated (principal); G40.909 Epilepsy, unspecified, not intractable, without status epilepticus; F10.920 Alcohol use, unspecified with intoxication, uncomplicated; E87.6 Hypokalemia; E83.42 Hypomagnesemia; Y90.5 Blood alcohol level of 100-119 mg/100 ml; Z20.822 Contact with and (suspected) exposure to COVID-19; I10 Essential (primary) hypertension; F17.210 Nicotine dependence, cigarettes, uncomplicated
CPT/HCPCS: 0240U; 36415; 80048; 80053; 80306; 80307; 83735; 85025; 85610; 96374; 96375; 99284; 99222; 99233; 99238; A9270-GY; C9113; J1644; J2060; J2765; J3475; J7030

== ENCOUNTER 2020-12-03 23:31 | Emergency (ER) | payer OTHER ==
[~2020-12-03 23:31] MED LIST: Ketamine 500 mg/10 ML MDV ONE; Midazolam 1 MG/ML 5 ML SDV ONE; fentaNYL 100 MCG/2 ML SDV ONE
[2020-12-03] MEDS ORDERED: Ondansetron 4 MG/2 ML SDV IVPUSH ONE (23:35)
[2020-12-03] MEDS ORDERED: Lactated Ringers 1,000 ML IV SCH (23:45)
[2020-12-04] MEDS ORDERED: Ondansetron 4 MG/2 ML SDV IVPUSH PRN (00:14)
--- NOTE | 2020-12-04 01:06 | EDM.PDOC ---
ED HPI GENERAL MEDICAL PROBLEM - General Chief Complaint: Behavioral/Psych Stated Complaint: [facility] Time Seen by Provider: 12/03/20 23:31 - History of Present Illness INITIAL COMMENTS - FREE TEXT/NARRATIVE: 50-year-old male presents the emergency room brought in by EMS highly intoxicated. EMS was called by a third constitution party thought perhaps the patient might of had a seizure. Patient was found to be highly intoxicated no evidence of seizure activity by EMS. He was a little hypoxic this responded to oxygen he was quite obtunded at the scene and that has not changed upon arrival here. Patient is coughing but once he cleared this subsided. I do not have any other history on this gentleman for [employer] there were a lot of empty travelers in his hotel room. - Related Data Allergies Allergy/AdvReac Type Severity Reaction Status Date / Time No Known Allergies Allergy Verified 11/30/20 13:02 Home Meds: Home Meds . [No Known Home Meds] 04/30/20 [History] Past Medical History Cardiovascular History: Reports: Hypertension Psychiatric History: Reports: Addiction Endocrine/Metabolic History: Reports: Obesity/BMI 30+ Social & Family History - Family History Family Medical History: No Pertinent Family History Cardiac: Reports: Pulmonary Hypertension - Tobacco Use Tobacco Use Status *Q: Current Every Day Tobacco User Years of Tobacco use: 1 Packs/Tins Daily: 1 - Caffeine Use Caffeine Use: Reports: None - Recreational Drug Use Recreational Drug Use: No ED ROS GENERAL - Review of Systems Review Of Systems: See Below Reason Not Obtained: Unable to obtain due to diminished mental status ED EXAM, GENERAL - Physical Exam Exam: See Below Exam Limited By: Other (Unable to answer questions or communicate) General Appearance: Obtunded, Other (Highly intoxicated) Eye Exam: Bilateral Eye: Normal Inspection Ears: Normal External Exam, Normal Canal, Hearing Grossly Normal, Normal TMs Nose: Normal Inspection, Normal Mucosa, No Blood Throat/Mouth: Normal Inspection, Normal Lips, Normal Gums, Normal Oropharynx, Normal Voice, No Airway Compromise Head: Atraumatic, Normocephalic Neck: Normal Inspection, Supple, Non-Tender, Full Range of Motion Respiratory/Chest: No Respiratory Distress, Lungs Clear, Normal Breath Sounds Cardiovascular: Regular Rate, Rhythm, No Edema, No Murmur GI/Abdominal: Normal Bowel Sounds, Soft Back Exam: Normal Inspection Extremities: Normal Inspection Neurological: Unresponsive, Other ED GENERAL MEDICAL PROCEDURES - Endotracheal Intubation Time of Intubation: 02:00 ET Intubation Indication: Airway Protection Preparation: Suction, Balloon Tested, BVM Set Up Airway Assessment: Obese Pre-Oxygenation: 100% FiO2 Anesthesia Meds: Ketamine, Succinylcholine Placement: Orotracheal, Cuffed Cords Visualized: Yes ETT Size In mm: 7.5 Number of Attempts: 1 Confirmed By: CO2 Indicator, Bilateral Breath Sounds Tube Secured By: By RT Endotracheal Intubation Comment: Uncomplicated intubation #1 Interpretation EKG Date: 12/03/20 Rhythm: NSR Rate (Beats/Min): 85 [place]: Normal P-Wave: Present QRS: Other (Interventricular conduction delay, early transition, decreased amplitude in the limb leads) ST-T: Normal QT: Prolonged Comparison: NA - No Prior EKG EKG Interpretation Comments: Abnormal Course - Vital Signs Last Recorded V/S: Last Vital Signs Temp 36.3 C 12/03/20 23:45 Pulse 98 12/03/20 23:45 Resp 20 12/03/20 23:45 BP 97/65 12/03/20 23:45 Pulse Ox 96 12/04/20 00:00 - Orders/Labs/Meds Orders: Active Orders 24 hr Category Date Time Status Chest 1V Frontal [CR] Stat Exams 12/03/20 23:36 Taken Chest 1V Frontal [CR] Stat Exams 12/04/20 02:06 Ordered Head wo Cont [CT] Stat Exams 12/04/20 00:10 Taken CULTURE BLOOD [BC] Stat Lab 12/04/20 01:35 Received CULTURE BLOOD [BC] Stat Lab 12/04/20 01:45 Received LACTATE SEPSIS W/ REFLEX [CHEM] Stat Lab 12/04/20 01:45 Received Lactated Ringers [Ringers, Lactated] 1,000 ml Med 12/04/20 01:38 Active IV .BOLUS Lactated Ringers [Ringers, Lactated] 1,000 ml Med 12/03/20 23:45 Active IV ASDIRECTED Lactated Ringers [Ringers, Lactated] 1,000 ml Med 12/04/20 01:45 Active IV ASDIRECTED Midazolam [Versed 1 MG/ML] 100 mg Med 12/04/20 02:00 Active Premix Bag 1 bag IV TITRATE Norepinephrine [Levophed] 4 mg Med 12/04/20 01:30 Active Dextrose 5% in Water 246 ml IV TITRATE Ondansetron [Zofran] Med 12/04/20 00:14 Active 4 mg IVPUSH ONETIME PRN fentaNYL [Sublimaze] 2,500 mcg Med 12/04/20 02:00 Active Sodium Chloride 0.9% [Normal Saline] 200 ml IV TITRATE Blood Culture x2 Reflex Set [OM.PC] Stat Oth 12/04/20 00:49 Ordered Medication Orders Lactated Ringer's (Ringers, Lactated) 1,000 mls @ 150 mls/hr IV ASDIRECTED RUBEN Last Infusion: 12/03/20 23:45 Dose: 999 mls/hr Documented by: Admin: 12/03/20 23:40 Dose: 150 mls/hr Documented by: MARYURI Norepinephrine Bitartrate 4 mg (/ Dextrose/Water) 250 mls @ 7.5 mls/hr IV T ITRATE RUBEN; Protocol Last Titration: 12/04/20 01:51 Dose: 6 mcg/min, 22.5 mls/hr Documented by: Titration: 12/04/20 01:48 Dose: 4 mcg/min, 15 mls/hr Documented by: Titration: 12/04/20 01:48 Dose: 2 mcg/min, 7.5 mls/hr Documented by: Admin: 12/04/20 01:40 Dose: 2 mcg/min, 7.5 mls/hr Documented by: MARYURI Lactated Ringer's (Ringers, Lactated) 1,000 mls @ 999 mls/hr IV .BOLUS ONE Stop: 12/04/20 02:38 Last Admin: 12/04/20 00:50 Dose: 999 mls/hr Documented by: MARYURI Lactated Ringer's (Ringers, Lactated) 1,000 mls @ 125 mls/hr IV ASDIRECTED RUBEN Last Admin: 12/04/20 01:46 Dose: 125 mls/hr Documented by: MARYURI Fentanyl 2,500 mcg/ Sodium (Chloride) 250 mls @ 11.34 mls/hr IV TITRATE RUBEN; Protocol Last Admin: 12/04/20 02:21 Dose: 1 mcg/kg/hr, 11.34 mls/hr Documented by: SANTOS Midazolam HCl 100 mg/ Premix 100 mls @ 2.268 mls/hr IV TITRATE RUBEN; Protocol Last Admin: 12/04/20 02:20 Dose: 0.02 mg/kg/hr, 2.268 mls/hr Documented by: SANTOS Ondansetron HCl (Ondansetron 4 Mg/2 Ml Sdv) 4 mg IVPUSH ONETIME PRN PRN Reason: Nausea/Vomiting Labs: Laboratory Tests 12/03/20 12/03/20 12/03/20 Range/Units 23:47 23:56 23:56 WBC 6.43 (4.23-9.07) K/mm3 RBC 3.88 L (4.63-6.08) M/mm3 Hgb 14.1 (13.7-17.5) gm/dl Hct 41.8 (40.1-51.0) % MCV 107.7 H (79.0-92.2) fl MCH 36.3 H (25.7-32.2) pg MCHC 33.7 (32.2-35.5) g/dl RDW Std Deviation 48.3 H (35.1-43.9) fL Plt Count 75 L (163-337) K/mm3 MPV 9.7 (9.4-12.3) fl Neut % (Auto) 43.6 (34.0-67.9) % Lymph % (Auto) 39.8 (21.8-53.1) % [place] % (Auto) 14.2 H (5.3-12.2) % Eos % (Auto) 1.9 (0.8-7.0) Baso % (Auto) 0.3 (0.1-1.2) % Neut # (Auto) 2.81 (1.78-5.38) K/mm3 Lymph # (Auto) 2.56 (1.32-3.57) K/mm3 [place] # (Auto) 0.91 H (0.30-0.82) K/mm3 Eos # (Auto) 0.12 (0.04-0.54) K/mm3 Baso # (Auto) 0.02 (0.01-0.08) K/mm3 Manual Slide Review Abnormal smear PT 10.4 (9.7-12.0) SECONDS INR 0.97 Puncture Site ABG pH (7.35-7.45) ABG pCO2 (35.0-45.0) mmHg ABG pO2 (80.0-100.0) mmHg ABG HCO3 (22.0-26.0) meq/L ABG O2 Saturation (96.0-97.0) % ABG Base Excess (-2-2.0) Jesus Test O2 Delivery Device Sodium (136-145) mEq/L Potassium (3.5-5.1) mEq/L Chloride (98-107) mEq/L Carbon Dioxide (21-32) mEq/L Anion Gap (5-15) BUN (7-18) mg/dL Creatinine (0.7-1.3) mg/dL Est Cr Clr Drug Dosing mL/min Estimated GFR (MDRD) (>60) mL/min BUN/Creatinine Ratio (14-18) Glucose (70-99) mg/dL Calcium (8.5-10.1) mg/dL Magnesium (1.8-2.4) mg/dL Total Bilirubin (0.2-1.0) mg/dL AST (15-37) U/L ALT (16-63) U/L Alkaline Phosphatase (46-116) U/L Total Protein (6.4-8.2) g/dl Albumin (3.4-5.0) g/dl Globulin gm/dL Albumin/Globulin Ratio (1-2) Lipase (73-393) U/L Urine Color (Yellow) Urine Appearance (Clear) Urine pH (5.0-8.0) Ur Specific [place] (1.005-1.030) Urine Protein (Negative) Urine Glucose (UA) (Negative) Urine Ketones (Negative) Urine Occult Blood (Negative) Urine Nitrite (Negative) Urine Bilirubin (Negative) Urine Urobilinogen (0.2-1.0) Ur Leukocyte Esterase (Negative) U Hyaline Cast (Auto) (0-5) /lpf Urine RBC (0-5) /hpf Urine WBC (0-5) /hpf Ur Squamous Epith Cells (0-5) /hpf Urine Bacteria (FEW) /hpf Urine Mucus (FEW) /hpf Urine Opiates Screen (IMBOJZ=703) Ur Buprenorphine Scrn (CUTOFF=10) Ur Oxycodone Screen (NIT2RP=328) Urine Methadone Screen (DVV9DZ=061) Ur Propoxyphene Screen (BUBJYL=134) Ur Barbiturates Screen (CTEQZA=862) Ur Tricyclics Screen (QEJRBG=231) Ur Phencyclidine Scrn (CUTOFF=25) Ur Amphetamine Screen (DURENQ=247) U Methamphetamines Scrn (QQPUBA=453) U Benzodiazepines Scrn (NKLQVU=279) U Cocaine Metab Screen (TCOTST=619) U Marijuana (THC) Screen (CUTOFF=50) Ethyl Alcohol (0.00) gm% SARS-CoV-2 RNA (UTE) Negative (NEGATIVE) 12/03/20 12/04/20 12/04/20 Range/Units 23:56 00:06 00:06 WBC (4.23-9.07) K/mm3 RBC (4.63-6.08) M/mm3 Hgb (13.7-17.5) gm/dl Hct (40.1-51.0) % MCV (79.0-92.2) fl MCH (25.7-32.2) pg MCHC (32.2-35.5) g/dl RDW Std Deviation (35.1-43.9) fL Plt Count (163-337) K/mm3 MPV (9.4-12.3) fl Neut % (Auto) (34.0-67.9) % Lymph % (Auto) (21.8-53.1) % [place] % (Auto) (5.3-12.2) % Eos % (Auto) (0.8-7.0) Baso % (Auto) (0.1-1.2) % Neut # (Auto) (1.78-5.38) K/mm3 Lymph # (Auto) (1.32-3.57) K/mm3 [place] # (Auto) (0.30-0.82) K/mm3 Eos # (Auto) (0.04-0.54) K/mm3 Baso # (Auto) (0.01-0.08) K/mm3 Manual Slide Review PT (9.7-12.0) SECONDS INR Puncture Site ABG pH (7.35-7.45) ABG pCO2 (35.0-45.0) mmHg ABG pO2 (80.0-100.0) mmHg ABG HCO3 (22.0-26.0) meq/L ABG O2 Saturation (96.0-97.0) % ABG Base Excess (-2-2.0) Jesus Test O2 Delivery Device Sodium 135 L (136-145) mEq/L Potassium 3.4 L (3.5-5.1) mEq/L Chloride 97 L (98-107) mEq/L Carbon Dioxide 16 L D (21-32) mEq/L Anion Gap 25.4 H (5-15) BUN 22 H (7-18) mg/dL Creatinine 1.3 (0.7-1.3) mg/dL Est Cr Clr Drug Dosing 70.79 mL/min Estimated GFR (MDRD) 58 (>60) mL/min BUN/Creatinine Ratio 16.9 (14-18) Glucose 108 H (70-99) mg/dL Calcium 8.3 L (8.5-10.1) mg/dL Magnesium 2.3 (1.8-2.4) mg/dL Total Bilirubin 0.6 (0.2-1.0) mg/dL AST 58 H (15-37) U/L ALT 58 (16-63) U/L Alkaline Phosphatase 116 (46-116) U/L Total Protein 7.9 (6.4-8.2) g/dl Albumin 4.0 (3.4-5.0) g/dl Globulin 3.9 gm/dL Albumin/Globulin Ratio 1.0 (1-2) Lipase 114 (73-393) U/L Urine Color Kristina H (Yellow) Urine Appearance Clear (Clear) Urine pH 5.5 (5.0-8.0) Ur Specific [place] > or = 1.030 (1.005-1.030) Urine Protein 2+ H (Negative) Urine Glucose (UA) Negative (Negative) Urine Ketones 1+ H (Negative) Urine Occult Blood Negative (Negative) Urine Nitrite Negative (Negative) Urine Bilirubin 1+ H (Negative) Urine Urobilinogen 0.2 (0.2-1.0) Ur Leukocyte Esterase Negative (Negative) U Hyaline Cast (Auto) 10-20 H (0-5) /lpf Urine RBC 0-5 (0-5) /hpf Urine WBC 0-5 (0-5) /hpf Ur Squamous Epith Cells 0-5 (0-5) /hpf Urine Bacteria Few (FEW) /hpf Urine Mucus Moderate H (FEW) /hpf Urine Opiates Screen Negative (ATRFOX=557) Ur Buprenorphine Scrn Negative (CUTOFF=10) Ur Oxycodone Screen Negative (BEG6WF=233) Urine Methadone Screen Negative (ESG9OD=948) Ur Propoxyphene Screen Negative (KXRQOO=501) Ur Barbiturates Screen Negative (MQWZSU=007) Ur Tricyclics Screen Negative (LIYDNG=025) Ur Phencyclidine Scrn Negative (CUTOFF=25) Ur Amphetamine Screen Negative (GKIALP=520) U Methamphetamines Scrn Negative (RLOXPT=179) U Benzodiazepines Scrn Presumptive positive H (ESXADU=183) U Cocaine Metab Screen Negative (LOCCBQ=418) U Marijuana (THC) Screen Negative (CUTOFF=50) Ethyl Alcohol 0.60 (0.00) gm% SARS-CoV-2 RNA (UTE) (NEGATIVE) 12/04/20 Range/Units 01:28 WBC (4.23-9.07) K/mm3 RBC (4.63-6.08) M/mm3 Hgb (13.7-17.5) gm/dl Hct (40.1-51.0) % MCV (79.0-92.2) fl MCH (25.7-32.2) pg MCHC (32.2-35.5) g/dl RDW Std Deviation (35.1-43.9) fL Plt Count (163-337) K/mm3 MPV (9.4-12.3) fl Neut % (Auto) (34.0-67.9) % Lymph % (Auto) (21.8-53.1) % [place] % (Auto) (5.3-12.2) % Eos % (Auto) (0.8-7.0) Baso % (Auto) (0.1-1.2) % Neut # (Auto) (1.78-5.38) K/mm3 Lymph # (Auto) (1.32-3.57) K/mm3 [place] # (Auto) (0.30-0.82) K/mm3 Eos # (Auto) (0.04-0.54) K/mm3 Baso # (Auto) (0.01-0.08) K/mm3 Manual Slide Review PT (9.7-12.0) SECONDS INR Puncture Site Lt radial ABG pH 7.26 L (7.35-7.45) ABG pCO2 36.0 (35.0-45.0) mmHg ABG pO2 86.0 (80.0-100.0) mmHg ABG HCO3 15.5 L (22.0-26.0) meq/L ABG O2 Saturation 93.8 L (96.0-97.0) % ABG Base Excess -10.5 L (-2-2.0) Jesus Test Positive O2 Delivery Device Nasal cannula Sodium (136-145) mEq/L Potassium (3.5-5.1) mEq/L Chloride (98-107) mEq/L Carbon Dioxide (21-32) mEq/L Anion Gap (5-15) BUN (7-18) mg/dL Creatinine (0.7-1.3) mg/dL Est Cr Clr Drug Dosing mL/min Estimated GFR (MDRD) (>60) mL/min BUN/Creatinine Ratio (14-18) Glucose (70-99) mg/dL Calcium (8.5-10.1) mg/dL Magnesium (1.8-2.4) mg/dL Total Bilirubin (0.2-1.0) mg/dL AST (15-37) U/L ALT (16-63) U/L Alkaline Phosphatase (46-116) U/L Total Protein (6.4-8.2) g/dl Albumin (3.4-5.0) g/dl Globulin gm/dL Albumin/Globulin Ratio (1-2) Lipase (73-393) U/L Urine Color (Yellow) Urine Appearance (Clear) Urine pH (5.0-8.0) Ur Specific [place] (1.005-1.030) Urine Protein (Negative) Urine Glucose (UA) (Negative) Urine Ketones (Negative) Urine Occult Blood (Negative) Urine Nitrite (Negative) Urine Bilirubin (Negative) Urine Urobilinogen (0.2-1.0) Ur Leukocyte Esterase (Negative) U Hyaline Cast (Auto) (0-5) /lpf Urine RBC (0-5) /hpf Urine WBC (0-5) /hpf Ur Squamous Epith Cells (0-5) /hpf Urine Bacteria (FEW) /hpf Urine Mucus (FEW) /hpf Urine Opiates Screen (LIOVDW=137) Ur Buprenorphine Scrn (CUTOFF=10) Ur Oxycodone Screen (HXC3SF=719) Urine Methadone Screen (HYT5BX=530) Ur Propoxyphene Screen (PVUWQS=304) Ur Barbiturates Screen (FZMUIR=742) Ur Tricyclics Screen (UHNGNM=232) Ur Phencyclidine Scrn (CUTOFF=25) Ur Amphetamine Screen (FZYCYN=253) U Methamphetamines Scrn (OCPZNB=877) U Benzodiazepines Scrn (ABTFPA=852) U Cocaine Metab Screen (EDOEYE=838) U Marijuana (THC) Screen (CUTOFF=50) Ethyl Alcohol (0.00) gm% SARS-CoV-2 RNA (UTE) (NEGATIVE) Meds: Medications Generic Name Dose Route Start Last Admin Trade Name Freq PRN Reason Stop Dose Admin Lactated Ringer's 1,000 mls @ 150 mls/hr 12/03/20 23:45 12/03/20 23:45 Ringers, Lactated IV 999 mls/hr ASDIRECTED RUBEN Infusion Norepinephrine Bitartrate 4 mg 250 mls @ 7.5 mls/hr 12/04/20 01:30 12/04/20 01:51 / Dextrose/Water IV 6 mcg/min TITRATE RUBEN 22.5 mls/hr Titration Protocol 2 MCG/MIN Lactated Ringer's 1,000 mls @ 999 mls/hr 12/04/20 01:38 12/04/20 00:50 Ringers, Lactated IV 12/04/20 02:38 999 mls/hr .BOLUS ONE Administration Lactated Ringer's 1,000 mls @ 125 mls/hr 12/04/20 01:45 12/04/20 01:46 Ringers, Lactated IV 125 mls/hr ASDIRECTED RUBEN Administration Fentanyl 2,500 mcg/ Sodium 250 mls @ 11.34 mls/hr 12/04/20 02:00 12/04/20 02:21 Chloride IV 1 mcg/kg/hr TITRATE RUBEN 11.34 mls/hr Administration Protocol 1 MCG/KG/HR Midazolam HCl 100 mg/ Premix 100 mls @ 2.268 mls/hr 12/04/20 02:00 12/04/20 02:20 IV 0.02 mg/kg/hr TITRATE RUBEN 2.268 mls/hr Administration Protocol 0.02 MG/KG/HR Ondansetron HCl 4 mg 12/04/20 00:14 Ondansetron 4 Mg/2 Ml Sdv IVPUSH ONETIME PRN Nausea/Vomiting Discontinued Medications Generic Name Dose Route Start Last Admin Trade Name Pretty PRN Reason Stop Dose Admin Fentanyl Confirm 12/04/20 02:00 12/04/20 02:22 Fentanyl 2500 Mcg/50 Ml Sdv Administered 12/04/20 02:01 Not Given Dose 2,500 mcg .ROUTE .STK-MED ONE Sodium Chloride Confirm 12/04/20 02:01 12/04/20 02:23 Normal Saline Administered 12/04/20 02:02 Not Given Dose 250 mls @ as directed .ROUTE .STK-MED ONE Sodium Chloride Confirm 12/04/20 02:07 12/04/20 02:22 Normal Saline Administered 12/04/20 02:08 Not Given Dose 100 mls @ as directed .ROUTE .STK-MED ONE Midazolam HCl Confirm 12/04/20 02:06 12/04/20 02:22 Midazolam 5 Mg/Ml 10 Ml Mdv Administered 12/04/20 02:07 Not Given Dose 100 mg .ROUTE .STK-MED ONE Ondansetron HCl 4 mg 12/03/20 23:35 12/03/20 23:40 Ondansetron 4 Mg/2 Ml Sdv IVPUSH 12/03/20 23:36 4 mg ONETIME ONE Administration - Re-Assessments/Exams Free Text/Narrative Re-Assessment/Exam: 12/04/20 01:05 Patient is obtunded blood alcohol is 0.6 I would like to intubate him to protect his airway however his systolic blood pressure is in the mid 80s we are giving fluid to try and improve this may need to start him on pressors prior to int ubation. 12/04/20 01:[address] 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 He was kind enough to accept the patient in transfer 12/04/20 02:11 Patient was started on Levophed drip blood pressure stabilized he was intubated without difficulty glide scope assisted RSI technique using ketamine and succinylcholine 1-1/2 mg/kg of each with a 7.5 ET tube 23 cm at the teeth. Patient is doing okay maintained decent blood pressure tube placement confirmed with direct visualization color change and bilateral breath sounds. Indications for intubation is airway protection as he is highly intoxicated and obtunded Transfer with has been arranged. Departure - Departure Time of Disposition: 02:15 Disposition: DC/Tfer to Acute Hospital 02 Clinical Impression: Obtunded, On mechanically assisted ventilation Alcohol intoxication Qualifiers: Complication of substance-induced condition: uncomplicated Qualified Code(s): F10.920 - Alcohol use, unspecified with intoxication, uncomplicated - Discharge Information Referrals: Katelin Correa MD [Primary Care Provider] - Forms: ED Department Discharge Sepsis Event Note (ED) - Evaluation Sepsis Screening Result: No Definite Risk - Focused Exam Vital Signs: Vital Signs Temp Pulse Resp BP Pulse Ox 12/04/20 00:00 96 12/03/20 23:45 36.3 C 98 20 97/65 89 L - My Orders Last 24 Hours: My Active Orders 12/03/20 23:36 Chest 1V Frontal [CR] Stat 12/03/20 23:45 Lactated Ringers [Ringers, Lactated] 1,000 ml IV ASDIRECTED 12/04/20 00:10 Head wo Cont [CT] Stat 12/04/20 00:14 Ondansetron [Zofran] 4 mg IVPUSH ONETIME PRN 12/04/20 00:49 Blood Culture x2 Reflex Set [OM.PC] Stat 12/04/20 01:30 Norepinephrine [Levophed] 4 mg Dextrose 5% in Water 246 ml IV TITRATE 12/04/20 01:35 CULTURE BLOOD [BC] Stat 12/04/20 01:38 Lactated Ringers [Ringers, Lactated] 1,000 ml IV .BOLUS 12/04/20 01:45 CULTURE BLOOD [BC] Stat LACTATE SEPSIS W/ REFLEX [CHEM] Stat Lactated Ringers [Ringers, Lactated] 1,000 ml IV ASDIRECTED 12/04/20 02:00 Midazolam [Versed 1 MG/ML] 100 mg Premix Bag 1 bag IV TITRATE fentaNYL [Sublimaze] 2,500 mcg Sodium Chloride 0.9% [Normal Saline] 200 ml IV TITRATE 12/04/20 02:06 Chest 1V Frontal [CR] Stat - Assessment/Plan Last 24 Hours: My Active Orders 12/03/20 23:36 Chest 1V Frontal [CR] Stat 12/03/20 23:45 Lactated Ringers [Ringers, Lactated] 1,000 ml IV ASDIRECTED 12/04/20 00:10 Head wo Cont [CT] Stat 12/04/20 00:14 Ondansetron [Zofran] 4 mg IVPUSH ONETIME PRN 12/04/20 00:49 Blood Culture x2 Reflex Set [OM.PC] Stat 12/04/20 01:30 Norepinephrine [Levophed] 4 mg Dextrose 5% in Water 246 ml IV TITRATE 12/04/20 01:35 CULTURE BLOOD [BC] Stat 12/04/20 01:38 Lactated Ringers [Ringers, Lactated] 1,000 ml IV .BOLUS 12/04/20 01:45 CULTURE BLOOD [BC] Stat LACTATE SEPSIS W/ REFLEX [CHEM] Stat Lactated Ringers [Ringers, Lactated] 1,000 ml IV ASDIRECTED 12/04/20 02:00 Midazolam [Versed 1 MG/ML] 100 mg Premix Bag 1 bag IV TITRATE fentaNYL [Sublimaze] 2,500 mcg Sodium Chloride 0.9% [Normal Saline] 200 ml IV TITRATE 12/04/20 02:06 Chest 1V Frontal [CR] Stat
[2020-12-04] MEDS ORDERED: Norepinephrine 4 MG in Dextrose 5% in Water 246 ML IV SCH ×2 (01:30)
[2020-12-04] MEDS ORDERED: Lactated Ringers 1,000 ML IV ONE (01:38)
[2020-12-04] MEDS ORDERED: Lactated Ringers 1,000 ML IV SCH (01:45)
[2020-12-04] MEDS ORDERED: fentaNYL 2,500 MCG in Sodium Chloride 0.9% 200 ML IV SCH (02:00)
[2020-12-04] MEDS ORDERED: fentaNYL 2500 MCG/50 ML SDV ONE (02:00)
[2020-12-04] MEDS ORDERED: Midazolam 100 MG in Premix Bag 1 BAG IV SCH (02:00)
[2020-12-04] MEDS ORDERED: Sodium Chloride 0.9% 250 ML ONE (02:01)
[2020-12-04] MEDS ORDERED: Midazolam 5 MG/ML 10 ML MDV ONE (02:06)
[2020-12-04] MEDS ORDERED: Sodium Chloride 0.9% 100 ML ONE (02:07)
[2020-12-04] MEDS ORDERED: Midazolam 5 MG/ML 10 ML MDV IV STA (02:44)
[2020-12-04] MEDS ORDERED: fentaNYL 100 MCG/2 ML SDV IVPUSH ONE (02:45)
--- NOTE | 2020-12-04 08:24 | CR ---
Chest: Portable view of the chest was obtained. Comparison: Prior chest x-ray 04/30/20. Heart size and mediastinum are within normal limits. Lungs are clear with no acute parenchymal change. No acute osseous abnormality is appreciated. Impression: 1. Nothing acute is seen on portable chest x-ray. Diagnostic code #1
--- NOTE | 2020-12-04 08:42 | CT ---
Head CT Technique: Multiple axial sections through the brain were obtained. Intravenous contrast was not utilized. Reconstructed coronal and sagittal images were obtained. Comparison: No prior intracranial imaging is available. Findings: Ventricles along with basal cisterns and sulci over the convexities are mildly prominent. There is slight diminished density scattered within the periventricular white matter compatible with minimal small vessel ischemic demyelination change. No other abnormal parenchymal densities are seen. No evidence of intracranial hemorrhage is seen. No midline shift or mass-effect is seen. Bone window settings were reviewed which show no acute calvarial abnormality. Visualized mastoid sinuses show nothing acute. Mucosal thickening is seen within both maxillary sinuses as well as possible retention cyst compatible with chronic sinusitis. Minimal atherosclerotic calcification is seen within the carotid siphon. Tubing is seen within the nasopharynx most likely representing nasogastric tube. Impression: 1. Generalized atrophy with mild small vessel ischemic demyelination change. 2. Tubing presumably due to nasogastric tube. 3. Mild chronic appearing bilateral maxillary sinus findings. 4. No acute intracranial abnormality is appreciated. Diagnostic code #2 I agree with preliminary report from [facility] finalized on 12/04/20, 2:20 AM CDT, code 1
== END 2020-12-04 02:05 ==
LOC: JD.ED 23:31
DX: F10.129 Alcohol abuse with intoxication, unspecified (principal); I10 Essential (primary) hypertension; E66.9 Obesity, unspecified; Z68.30 Body mass index [BMI] 30.0-30.9, adult; Z72.0 Tobacco use; Z20.822 Contact with and (suspected) exposure to COVID-19; Z99.11 Dependence on respirator [ventilator] status
CPT/HCPCS: 31500; 36415; 36600; 43752; 51702; 70450; 71045; 80053; 80306; 80307; 81001; 82803; 83605; 83690; 83735; 85025; 85610; 87040; 87635; 93005; 96365; 96375; 99285; J2250; J2405; J3010; J7050; J7060; J7120; 93010; 99284; U0002